=== PATIENT | female | born 1990 | race Caucasian/White ===

== ENCOUNTER 2017-04-03 23:15 | Inpatient (IN) | payer OTHER ==
[~2017-04-03] VITALS: Ht 160 cm; Wt 66.0 kg
[2017-04-03] MEDS ORDERED: SOD CHLORIDE 0.9% 1,000 ML IV STA (23:24)
[2017-04-03] MEDS ORDERED: ONDANSETRON 4 MG INJ IV STA (23:24)
[2017-04-03] MEDS ORDERED: LEVETIRACETAM 500 MG (PMX) 100 ML IVPB ONE (23:30)
[2017-04-03 23:39] LABS: BASOPHIL # 0.1 10^3/ul (0.0-0.1); BASOPHILS % 0.4 % (0.0-2.0); EOSINOPHILS % 0.1 % (0.0-7.0); HEMATOCRIT 41.1 % (37.0-47.0); HEMOGLOBIN 13.7 g/dl (12.0-16.0); LYMPHOCYTES # 2.2 10^3/ul (0.8-2.9); LYMPHOCYTES % 11.6 % (15.0-51.0); MEAN CORPUSCULAR HEMOGLOBIN 30.7 pg (29.0-33.0); MEAN CORPUSCULAR HGB CONC 33.3 g/dl (32.0-37.0); MEAN CORPUSCULAR VOLUME 92.2 fl (82.0-101.0); MONOCYTE # 1.5 10^3/ul (0.3-0.9); MONOCYTES % 7.6 % (0.0-11.0); NEUTROPHIL # 15.3 10^3/ul (1.6-7.5); NEUTROPHILS % 79.7 % (39.0-77.0); PLATELET COUNT 382 10^3/UL (140-415); RED BLOOD COUNT 4.46 10^6/ul (4.20-5.40); RED CELL DISTRIBUTION WIDTH 12.8 % (11.5-14.5); WHITE BLOOD COUNT 19.2 10^3/ul (4.8-10.8)
[2017-04-04] VITALS (7 sets, daily range): BP systolic 98–115; BP diastolic 60–71; PULSE 75–79; RESP 18–19; TEMP 99; Ht 160 cm; Wt 66.0 kg
[2017-04-04] MEDS ORDERED: LORAZEPAM 2 MG INJ IV ONE
[2017-04-04 00:25] LABS: ALANINE AMINOTRANSFERASE 15 IU/L (13-69); ALBUMIN 5.3 g/dl (3.3-4.9); ALBUMIN/GLOBULIN RATIO 1.76; ALKALINE PHOSPHATASE 62 IU/L (42-121); ANION GAP 29 (8-16); ASPARTATE AMINO TRANSFERASE 35 IU/L (15-46); BILIRUBIN,INDIRECT 0.4 mg/dl (0-1.1); BILIRUBIN,TOTAL 0.4 mg/dl (0.2-1.3); BLOOD UREA NITROGEN 8 mg/dl (7-20); CARBON DIOXIDE 16 mmol/L (21-31); CHLORIDE 102 mmol/L (97-110); CREATININE 0.78 mg/dl (0.44-1.00); GLUCOSE 139 mg/dl (70-220); POTASSIUM 4.2 mmol/L (3.5-5.1); SODIUM 143 mmol/L (135-144); TOTAL PROTEIN 8.3 g/dl (6.1-8.1)
--- NOTE | 2017-04-04 00:30 | RADRPT ---
PROCEDURE: XR Chest. CLINICAL INDICATION: Seizure TECHNIQUE: Single AP portable chest. COMPARISON: None. FINDINGS: The cardiomediastinal silhouette is within normal limits of size. The lungs are clear without pleur al effusion or focal consolidation. No pneumothorax. The osseous structures and soft tissues are unr emarkable. IMPRESSION: 1. No evidence for active cardiopulmonary disease. RPTAT:AAJJ Romeo Emerson Physician Date Time Electronically viewed and signed by Romeo Emerson Physician on 04/04/2017 00:30 JERRI/
[2017-04-04 00:38] LABS: TROPONIN-I < 0.012 ng/ml (0.00-0.12)
[2017-04-04] MEDS ORDERED: BISACODYL (EC) 5 MG TAB PO PRN (01:30)
[2017-04-04] MEDS ORDERED: DOCUSATE SODIUM 100 MG CAP PO PRN (01:30)
[2017-04-04] MEDS ORDERED: ACETAMINOPHEN 325 MG TAB PO PRN (01:30)
[2017-04-04] MEDS ORDERED: NACL 0.9% 3 ML SYG IV SCH (01:30)
[2017-04-04 01:48] LABS: ETHANOL < 10.0 mg/dl
[2017-04-04 01:51] LABS: VALPROATE < 10 ug/ml (50-100)
[2017-04-04] MEDS ORDERED: SOD CHLORIDE 0.9% 1,000 ML IV ONE (02:00)
--- NOTE | 2017-04-04 02:16 | ERA ---
ER Documentation Chief Complaint Date/Time DATE: 04/04/17 TIME: 02:09 Chief Complaint HPI 27-year-old woman with a history of chronic seizure disorder medication noncompliance presents from home after having her third seizure. Friends called 911 because she had 3 tonic-clonic seizures today followed by postictal episodes. 911 picked her up and she had another tonic-clonic seizure includes making it a total of 4 today. She lost bladder control after the last seizure activity. She has had no fevers, no vomiting or diarrhea. ROS All systems reviewed and are negative except as per history of present illness. Allergies Allergies: Coded Allergies: No Known Allergy (Unverified , 04/04/17) PMhx/Soc Seizure disorder FmHx Family History: No diabetes Physical Exam Vitals Vital Signs Date Time Temp Pulse Resp B/P Pulse Ox O2 Delivery O2 Flow Rate FiO2 04/03/17 23:44 98.5 92 20 120/75 98 Physical Exam GENERAL: Well-developed, well-nourished, encephalopathic, dehydrated, afebrile HEENT: Dry mucous membranes, pink conjunctiva, no cervical spine tenderness or step-off deformities, no goiter, no jaundice or icterus, extraocular movements intact without pain. No submandibular induration, and no pharyngeal erythema NEURO: Postictal, confused, eyes open, pupils equal round reactive to light, no focal deficits or facial asymmetry, patient moving all extremities without difficulty CARDIAC: Tachycardic and regular no murmurs rubs or gallops LUNGS: Clear bilaterally no wheezing crackles or stridor ABDOMEN: Soft nontender, no guarding, no rigidity, no rebound, no psoas sign no obturator sign. Normoactive bowel sounds SKIN: Warm and dry to touch, soft tissue contusion/hematoma to the mid calf, no lacerations, no ecchymosis, no target lesions, and without ulcers EXTREMITIES: No clubbing cyanosis or edema, calves are bilaterally symmetrical, no Homans sign, no popliteal cord sign. Distal pulses equal and bilateral PSYCH: Normal affect without agitation or irritability Result Diagram: 04/03/17232604/03/172326 Results 24 hrs Laboratory Tests Test 04/03/17 23:27 White Blood Count 19.210^3/ul Red Blood Count 4.4610^6/ul Hemoglobin 13.7g/dl Hematocrit 41.1% Mean Corpuscular Volume 92.2fl Mean Corpuscular Hemoglobin 30.7pg Mean Corpuscular Hemoglobin Concent 33.3g/dl Red Cell Distribution Width 12.8% Platelet Count 46566^3/UL Mean Platelet Volume 11.0fl Neutrophils % 79.7% Lymphocytes % 11.6% Monocytes % 7.6% Eosinophils % 0.1% Basophils % 0.4% Nucleated Red Blood Cells % 0.0/100WBC Neutrophils # 15.310^3/ul Lymphocytes # 2.210^3/ul Monocytes # 1.510^3/ul Eosinophils # 0.010^3/ul Basophils # 0.110^3/ul Nucleated Red Blood Cells # 0.010^3/ul Sodium Level 143mmol/L Potassium Level 4.2mmol/L Chloride Level 102mmol/L Carbon Dioxide Level 16mmol/L Anion Gap 29 Blood Urea Nitrogen 8mg/dl Creatinine 0.78mg/dl Glucose Level 139mg/dl Calcium Level 10.0mg/dl Total Bilirubin 0.4mg/dl Direct Bilirubin 0.00mg/dl Indirect Bilirubin 0.4mg/dl Aspartate Amino Transf (AST/SGOT) 35IU/L Alanine Aminotransferase (ALT/SGPT) 15IU/L Alkaline Phosphatase 62IU/L Troponin I < 0.012ng/ml Total Protein 8.3g/dl Albumin 5.3g/dl Globulin 3.00g/dl Albumin/Globulin Ratio 1.76 Lipase 56U/L Beta HCG, Quantitative < 2.4mIU/ml Valproic Acid (Depakene) Level < 10ug/ml Ethyl Alcohol Level < 10.0mg/dl Current Medications Medications (Trade) Dose Ordered Sig/Mert Route PRN Reason Start Time Stop Time Status Last Admin Dose Admin Sodium Chloride (NS) 1,000 ml @ 1,000 mls/hr Q1H STAT IV 04/03/17 23:24 04/04/17 00:23 DC 04/03/17 23:52 Ondansetron HCl 4 mg 4 mg ONCE STAT IV 04/03/17 23:24 04/03/17 23:26 DC 04/03/17 23:52 Levetiracetam (Keppra 500 Mg/ 100ml (Pmx)) 100 ml @ 400 mls/hr ONCE ONCE IVPB 7/27/17 23:30 04/03/17 23:44 DC 04/03/17 23:30 Lorazepam 1 mg 1 mg ONCE ONCE IV 04/04/17 00:00 04/04/17 00:01 DC 04/04/17 00:00 Levetiracetam 100 ml @ 400 mls/hr Q12 IVPB 04/04/17 09:00 UNV Sodium Chloride (NS) 1,000 ml @ 80 mls/hr [id number] IV 04/04/17 01:06 UNV IV Flush (NS 3 ml) 3 ml PER PROTOCOL IV 04/04/17 01:30 UNV Lorazepam (Ativan) 2 mg Q4 PRN IV SEIZURES 04/04/17 01:30 UNV Acetaminophen (Tylenol Tab) 650 mg Q6H PRN PO PAIN LEVEL 1-3 OR FEVER 04/04/17 01:30 UNV Docusate Sodium (Colace) 100 mg Q12H PRN PO CONSTIPATION 04/04/17 01:30 UNV Bisacodyl (Dulcolax) 5 mg DAILY PRN PO CONSTIPATION 04/04/17 01:30 UNV Pantoprazole 40 mg 40 mg DAILY@06 IV 04/04/17 06:00 UNV Sodium Chloride (NS) 1,000 ml @ 1,000 mls/hr Q1H ONCE IV 04/04/17 02:00 04/04/17 02:59 Procedures/MDM IV line was established patient was placed on director cardiac rhythm strip revealed a sinus tachycardia at 100 bpm with upright P and T waves. Patient was afebrile. For dehydration I administered 2 L normal saline intravenously, and for postictal agitation patient received lorazepam 1 mg IV 1. I also administered Keppra 500 mg IV. Chest X-ray 1V Interpreted by me: Soft Tissue: No acute abnormalities Bones: No acute abnormalities Mediastinum/Cardiac Silhouette/Lungs: No acute abnormalities EKG performed, read by me: 96 bpm, normal sinus rhythm, normal axis, no acute ST segment changes, narrow QRS complex, with good R-wave progression in precordial leads. CBC revealed a leukocytosis at 19, electrolytes unremarkable, liver function tests normal, test negative, troponin negative, ethanol level negative , urine analysis is pending I will follow-up. If positive I will will treat with IV antibiotics. Critical Care: Time: 37 minutes, this was time separate from other billable procedures. Treatments/Evaluations: Close monitoring and treatment of unstable vital signs, cardiorespiratory, and neurologic status, while maintaining tight balance of fluid, respiratory, and cardiac interventions. Patient will be admitted to telemetry setting for continued medical management and possible neurology consultation. Departure Diagnosis: Primary Impression: Status epilepticus Additional Impressions: Acute encephalopathy Postictal state Dehydration Leukocytosis Qualified Code: D72.820 - Lymphocytosis Condition: Fair SAMIRA RUSS MD Apr 04, 2017 02:16
[2017-04-04 03:23] LABS: ADD UMIC YES; UR ASCORBIC ACID NEGATIVE (NEGATIVE); UR BACTERIA FEW /HPF (NONE SEEN); UR BILIRUBIN (Dip) NEGATIVE (NEGATIVE); UR BLOOD (Dip) 2+ mg/dL (NEGATIVE); UR CLARITY SLIGHTLY CLOUDY (CLEAR); UR COLOR YELLOW (YELLOW); UR GLUCOSE (Dip) NEGATIVE (NEGATIVE); UR KETONES (Dip) 1+ mg/dL (NEGATIVE); UR LEUKOCYTE ESTERASE (Dip) NEGATIVE Leu/ul (NEGATIVE); UR NITRITE (Dip) NEGATIVE (NEGATIVE); UR RBC 26 /HPF (0-5); UR SPECIFIC GRAVITY (Dip) 1.016 (1.003-1.030); UR TOTAL PROTEIN (Dip) 1+ mg/dl (NEGATIVE); UR UROBILINOGEN (Dip) NEGATIVE (NEGATIVE)
[2017-04-04 03:25] LABS: BARBITURATES Negative (NEGATIVE); BENZODIAZEPINES Negative (NEGATIVE); CANNABINOIDS Negative (NEGATIVE); COCAINE Negative (NEGATIVE); OPIATES Negative (NEGATIVE)
--- NOTE | 2017-04-04 04:56 | RADRPT ---
PROCEDURE: CT brain without contrast. CLINICAL INDICATION: Seizure. TECHNIQUE: CT scan of the brain was performed on a multi-detector high-resolution CT scanner. Co ntiguous axial images were obtained from the skull base to the vertex without intravenous contrast. Coronal and sagittal reformatted images were also obtained. Images were reviewed on the PACS works tation. One or more of the following dose reduction techniques were used: - Automated exposure control. - Adjustment of the mA and/or kV according to patient size. - Use of iterative reconstruction technique. Exam CTD/vol = 45.01 mGy. Total exam DLP = 1440.45 mGy-cm. COMPARISON: None. FINDINGS: The ventricles and cortical sulci are within normal limits for patient's age. There are no areas of abnormal attenuation within the brain parenchyma. There is no mass effect or midline shift. There is no intracranial hemorrhage or abnormal extra-axial collection. The calvarium is intact. There is no evidence of fracture. There is minimal mucoperiosteal disease w ithin the right maxillary sinus. Bilateral mastoid air cells are clear. IMPRESSION: No acute intracranial abnormality identified. .Ethan Dickens MD, MD Date Time Electronically viewed and signed by .Ethan Dickens MD, MD on 04/04/2017 04:55 .T/
[2017-04-04 05:50] LABS: ABNORMAL IP MESSAGE 1; BASOPHIL # 0.1 10^3/ul (0.0-0.1); BASOPHILS % 0.4 % (0.0-2.0); EOSINOPHILS # 0.1 10^3/ul (0.0-0.5); EOSINOPHILS % 0.3 % (0.0-7.0); HEMATOCRIT 35.5 % (37.0-47.0); HEMOGLOBIN 11.6 g/dl (12.0-16.0); LYMPHOCYTES % 13.3 % (15.0-51.0); MEAN CORPUSCULAR HEMOGLOBIN 30.2 pg (29.0-33.0); MEAN CORPUSCULAR HGB CONC 32.7 g/dl (32.0-37.0); MEAN CORPUSCULAR VOLUME 92.4 fl (82.0-101.0); MEAN PLATELET VOLUME 10.9 fl (7.4-10.4); MONOCYTE # 1.5 10^3/ul (0.3-0.9); MONOCYTES % 10.2 % (0.0-11.0); NEUTROPHIL # 11.3 10^3/ul (1.6-7.5); NEUTROPHILS % 75.3 % (39.0-77.0); PLATELET COUNT 316 10^3/UL (140-415); RED BLOOD COUNT 3.84 10^6/ul (4.20-5.40); WHITE BLOOD COUNT 14.9 10^3/ul (4.8-10.8)
[2017-04-04 06:03] LABS: POSITIVE DIFF @See below
[2017-04-04] MEDS: PANTOPRAZOLE 40 MG INJ IV SCH (06:09)
[2017-04-04 06:18] LABS: ALBUMIN 4.2 g/dl (3.3-4.9); ALBUMIN/GLOBULIN RATIO 1.75; BILIRUBIN,INDIRECT 0.5 mg/dl (0-1.1); BILIRUBIN,TOTAL 0.5 mg/dl (0.2-1.3); CALCIUM 8.8 mg/dl (8.4-10.2); CREATININE 0.64 mg/dl (0.44-1.00); PHOSPHORUS 3.8 mg/dl (2.5-4.9); POTASSIUM 3.9 mmol/L (3.5-5.1); TOTAL PROTEIN 6.6 g/dl (6.1-8.1)
--- NOTE | 2017-04-04 07:15 | HP ---
Date/Time of Note Date/Time of Note DATE: 04/04/17 TIME: 06:56 Assessment/Plan VTE Prophylaxis VTE Prophylaxis Intervention: SCD's Assessment/Plan Chief Complaint/Hosp Course This is a 27 year female was admitted to the telemetry floor for: #1 encephalopathy: Neurologic versus metabolic versus infectious. Patient did present with leukocytosis however this likely could be elevated secondary to her seizure activity. There are no overt signs of infections at this time as there are no fevers, chest x-ray is normal urinalysis is normal. Urine drug screen is normal. Will check urine culture and blood culture for completeness sake. Because of her encephalopathy system likely is secondary to her seizure and this may be secondary to noncompliance with her medications per CT scan of the head did not show any acute intracranial abnormalities. Neurochecks every 2 hours, fall precautions. NPO until speech evaluation. #2 epilepsy: Patient has a history of seizure disorder and apparently is noncompliant as per her friends. Her medication history is unable to be obtained at this time. She was loaded with 500 mg of IV Keppra and will continue her on this every 12 hours. As needed lorazepam for any seizure activity. Will consult neurology for further treatment strategy. #3 leukocytosis: No signs of any infectious process at this time. This is likely reactive in nature secondary to her seizures. However we will order blood cultures and urine cultures as part of a sepsis workup. #4 DVT and GI prophylaxis: SCDs, Protonix Further treatment strategy will be implemented as per the clinical course Problems: HPI/ROS Admit Date/Time Admit Date/Time Hx of Present Illness Chief complaint: Seizures, altered mental status This is a 27-year-old woman with a history of chronic seizure disorder medication noncompliance presents from home after having her third seizure. History obtained from the EMS and ED physician documentation. Friends called 911 because she had 3 tonic-clonic seizures today followed by postictal episodes. 911 picked her up and she had another tonic-clonic seizure includes making it a total of 4 today. She lost bladder control after the last seizure activity. She has had no fevers, no vomiting or diarrhea. Upon my examination patient is arousable and does state that she know she is in the hospital however she goes back to sleep fairly quickly. Allergies: Daily Medications: See GONZALO MOMIN Subjective hx not possible: pt critical (Postictal, arousable but not cooperating verbally) PMH/Family/Social Past Medical History Epilepsy, unable to assess further history secondary to patient's medical state Past Surgical History unable to assess further history secondary to patient's medical state Family History Significant Family History: other (unable to assess further history secondary to patient's medical state) Social History unable to assess further history secondary to patient's medical state Exam/Review of Systems Vital Signs Vitals Vital Signs Date Time Temp Pulse Resp B/P Pulse Ox O2 Delivery O2 Flow Rate FiO2 04/04/17 06:50 67 18 93/71 97 Room Air 04/04/17 05:48 98.7 Exam Exam General: Patient is a well-developed female lying in bed, she is arousable, but not cooperating verbally likely secondary to postictal state/encephalopathy. HEENT: Atraumatic, normocephalic. The pupils are equal, round and reactive. Extraocular motor are intact Neck: Supple with full range of motion. No rigidity or meningismus Chest: Nontender Lungs: Clear to auscultation bilaterally no crackles rales or wheezing Heart: Normal S1-S2, Regular rhythm and rate. No murmur, S3, or S4 Abdomen: Soft , nontender, nondistended , bowel sounds are present. No guarding no rebound tenderness , No masses or organomegaly. No costovertebral temporal angle mass Extremities: Normal to inspection, no edema no cyanosis Neurologic: Somnolent but arousable not cooperating verbally likely secondary to postictal state/encephalopathy she does state that she know she is in the hospital. Additional Comments PROCEDURE: CT brain without contrast. CLINICAL INDICATION: Seizure. TECHNIQUE: CT scan of the brain was performed on a multi-detector high- resolution CT scanner. Contiguous axial images were obtained from the skull base to the vertex without intravenous contrast. Coronal and sagittal reformatted images were also obtained. Images were reviewed on the PACS workstation. One or more of the following dose reduction techniques were used: - Automated exposure control. - Adjustment of the mA and/or kV according to patient size. - Use of iterative reconstruction technique. Exam CTD/vol = 45.01 mGy. Total exam DLP = 1440.45 mGy-cm. COMPARISON: None. FINDINGS: The ventricles and cortical sulci are within normal limits for patient's age. There are no areas of abnormal attenuation within the brain parenchyma. There is no mass effect or midline shift. There is no intracranial hemorrhage or abnormal extra-axial collection. The calvarium is intact. There is no evidence of fracture. There is minimal mucoperiosteal disease within the right maxillary sinus. Bilateral mastoid air cells are clear. IMPRESSION: No acute intracranial abnormality identified. .Ethan Dickens MD, Date Time Electronically viewed and signed by .Ethan Dickens MD, on 04/04/2017 04:55 .T/ PROCEDURE: XR Chest. CLINICAL INDICATION: Seizure TECHNIQUE: Single AP portable chest. COMPARISON: None. FINDINGS: The cardiomediastinal silhouette is within normal limits of size. The lungs are clear without pleural effusion or focal consolidation. No pneumothorax. The osseous structures and soft tissues are unremarkable. IMPRESSION: 1. No evidence for active cardiopulmonary disease. RPTAT:AAJJ Physician Leydi Date Time Electronically viewed and signed by Physician Leydi on 04/04/2017 00:30 JERRI/ EKG performed, read by me: 96 bpm, normal sinus rhythm, normal axis, no acute ST segment changes, narrow QRS complex, with good R-wave progression in precordial leads. As per ED physician augmentation Labs Result Diagram: 04/04/1752804/04/17528 Medications Medications Current Medications Levetiracetam 100 ml @ 400 mls/hr Q12 IVPB ; Start 04/04/17 at 09:00 Sodium Chloride (NS) 1,000 ml @ 80 mls/hr [id number] IV ; Start 04/04/17 at 01:06 Lorazepam (Ativan) 2 mg Q4H PRN IV SEIZURES; Start 04/04/17 at 01:30 Acetaminophen (Tylenol Tab) 650 mg Q6H PRN PO PAIN LEVEL 1-3 OR FEVER; Start at 01:30 Docusate Sodium (Colace) 100 mg Q12H PRN PO CONSTIPATION; Start 04/04/17 at 01: 30 Bisacodyl (Dulcolax) 5 mg DAILY PRN PO CONSTIPATION; Start 04/04/17 at 01:30 Pantoprazole (Protonix Iv) 40 mg DAILY@06 IV Last administered on 04/04/17t 06: 09; Admin Dose 40 MG; Start 04/04/17 at 06:00 CHITO FUNK Apr 04, 2017 07:07
[2017-04-04] MEDS: SOD CHLORIDE 0.9% 1,000 ML IV SCH ×3 (09:37→23:09)
[2017-04-04] MEDS: LEVETIRACETAM 500 MG (PMX) 100 ML IVPB SCH ×2 (09:38→21:12)
[2017-04-05] VITALS (13 sets, daily range): BP systolic 105–121; BP diastolic 61–83; PULSE 53–150; RESP 17–19
[2017-04-05] MEDS: LORAZEPAM 2 MG INJ IV PRN (04:44)
[2017-04-05] MEDS: LEVETIRACETAM 1000 MG (PMX) 100 ML IVPB SCH ×2 (05:20→20:09)
[2017-04-05] MEDS: PANTOPRAZOLE 40 MG INJ IV SCH (05:32)
[2017-04-05 08:05] LABS: BASOPHIL # 0.1 10^3/ul (0.0-0.1); BASOPHILS % 0.4 % (0.0-2.0); EOSINOPHILS # 0.2 10^3/ul (0.0-0.5); EOSINOPHILS % 1.7 % (0.0-7.0); HEMATOCRIT 36.6 % (37.0-47.0); HEMOGLOBIN 12.3 g/dl (12.0-16.0); LYMPHOCYTES # 1.6 10^3/ul (0.8-2.9); LYMPHOCYTES % 12.9 % (15.0-51.0); MEAN CORPUSCULAR HEMOGLOBIN 30.7 pg (29.0-33.0); MEAN CORPUSCULAR HGB CONC 33.6 g/dl (32.0-37.0); MEAN CORPUSCULAR VOLUME 91.3 fl (82.0-101.0); MEAN PLATELET VOLUME 11.3 fl (7.4-10.4); MONOCYTE # 0.9 10^3/ul (0.3-0.9); MONOCYTES % 7.4 % (0.0-11.0); NEUTROPHIL # 9.7 10^3/ul (1.6-7.5); PLATELET COUNT 279 10^3/UL (140-415); RED BLOOD COUNT 4.01 10^6/ul (4.20-5.40); RED CELL DISTRIBUTION WIDTH 12.5 % (11.5-14.5); WHITE BLOOD COUNT 12.6 10^3/ul (4.8-10.8)
[2017-04-05 08:38] LABS: ALBUMIN 4.4 g/dl (3.3-4.9); ALBUMIN/GLOBULIN RATIO 1.69; BILIRUBIN,INDIRECT 0.4 mg/dl (0-1.1); BILIRUBIN,TOTAL 0.4 mg/dl (0.2-1.3); CALCIUM 9.3 mg/dl (8.4-10.2); CREATININE 0.58 mg/dl (0.44-1.00); MAGNESIUM 1.7 mg/dl (1.7-2.5); PHOSPHORUS 2.4 mg/dl (2.5-4.9); POTASSIUM 3.8 mmol/L (3.5-5.1)
[2017-04-05] MEDS: SOD CHLORIDE 0.9% 1,000 ML IV SCH (15:21)
--- NOTE | 2017-04-05 15:24 | CONS ---
Date/Time of Note Date/Time of Note DATE: 04/05/17 TIME: 15:13 Assessment/Plan Assessment/Plan Chief Complaint/Hosp Course Neuroexam: AOx3, fluent speech, slurred secondary to tongue bites, CN II-XII int , perll 4 to 2 mm, Motor, sensory, coord int, DTR 2+, no babinski A/P: Seizure d/o, s/p breakthrough seizures. Started on keppra,. was increased 1000 bid this am, was on Lamictal unclear exact dose, I left message to contact number in the chart, will restart when dose is known. Problems: Consultation Date/Type/Reason Admit Date/Time Type of Consultation: neurology Reason for Consultation seizures Hx of Present Illness 27 y/o with hx of generalized seizures since age 16, usually once every 6 mo, no aura, on lamotrigine, unknown dose, I called contact number in the chart, left message, pt claims full compliance. PMD note states noncompliance per pt's friends. Pt was admitted following several seizures at home, started on Keppra here 500 bid, had a seizure this am, dose was increased 1000 bid. Used to see neurologist in [facility], several years ago. Does not drive Past Medical History Medical History: no pertinent history Family History Significant Family History: no pertinent family hx Social History Alcohol Use: none Smoking Status: Never smoker Drug Use: none Exam/Review of Systems Vital Signs Vitals Vital Signs Date Time Temp Pulse Resp B/P Pulse Ox O2 Delivery O2 Flow Rate FiO2 04/05/17 12:02 84 04/05/17 11:58 98.0 18 105/61 98 04/04/17 11:07 Room Air Intake and Output 04/04/17 04/04/17 04/05/17 15:00 23:00 07:00 Intake Total 820 ml 1460 ml Output Total 1 ml Balance 819 ml 1460 ml Exam Constitutional: alert, oriented, well developed Head: atraumatic, normocephalic Neck: supple Respiratory: clear to auscultation Cardiovascular: regular rate and rhythm Gastrointestinal: non-tender, soft Musculoskeletal: nl extremities to inspection Results Result Diagram: 04/05/17 0726 04/05/17 0726 Results 24 hrs Laboratory Tests Test 04/05/17 07:26 White Blood Count 12.6 H Red Blood Count 4.01 L Hemoglobin 12.3 Hematocrit 36.6 L Mean Corpuscular Volume 91.3 Mean Corpuscular Hemoglobin 30.7 Mean Corpuscular Hemoglobin Concent 33.6 Red Cell Distribution Width 12.5 Platelet Count 279 Mean Platelet Volume 11.3 H Neutrophils % 77.0 Lymphocytes % 12.9 L Monocytes % 7.4 Eosinophils % 1.7 Basophils % 0.4 Nucleated Red Blood Cells % 0.0 Neutrophils # 9.7 H Lymphocytes # 1.6 Monocytes # 0.9 Eosinophils # 0.2 Basophils # 0.1 Nucleated Red Blood Cells # 0.0 Sodium Level 143 Potassium Level 3.8 Chloride Level 105 Carbon Dioxide Level 23 Anion Gap 19 H Blood Urea Nitrogen 4 L Creatinine 0.58 Glucose Level 100 Calcium Level 9.3 Phosphorus Level 2.4 #L Magnesium Level 1.7 Total Bilirubin 0.4 Direct Bilirubin 0.00 Indirect Bilirubin 0.4 Aspartate Amino Transf (AST/SGOT) 30 Alanine Aminotransferase (ALT/SGPT) 25 Alkaline Phosphatase 56 Total Protein 7.0 Albumin 4.4 Globulin 2.60 Albumin/Globulin Ratio 1.69 Medications Medications Current Medications Sodium Chloride (NS) 1,000 ml @ 80 mls/hr [id number] IV Last administered on 04/04 23:09; Admin Dose 80 MLS/HR; Start 04/04/17 at 01:06 Lorazepam (Ativan) 2 mg Q4H PRN IV SEIZURES Last administered on 04/05/17 04: 44; Admin Dose 2 MG; Start 04/04/17 at 01:30 Acetaminophen (Tylenol Tab) 650 mg Q6H PRN PO PAIN LEVEL 1-3 OR FEVER; Start at 01:30 Docusate Sodium (Colace) 100 mg Q12H PRN PO CONSTIPATION; Start 04/04/17 at 01: 30 Bisacodyl (Dulcolax) 5 mg DAILY PRN PO CONSTIPATION; Start 04/04/17 at 01:30 Pantoprazole 40 mg 40 mg DAILY@06 IV Last administered on 04/05/17 05:32; Admin Dose 40 MG; Start 04/04/17 at 06:00 Levetiracetam (Keppra 1,000mg/ 100ml (Pmx)) 100 ml @ 400 mls/hr Q12 IVPB Last administered on 04/05/17 05:20; Admin Dose 400 MLS/HR; Start 04/05/17 at 05:01 CARLOS LUCERO MD Apr 05, 2017 15:24
--- NOTE | 2017-04-05 23:18 | PN ---
Date/Time of Note Date/Time of Note DATE: 04/05/17 TIME: 23:11 Assessment/Plan VTE Prophylaxis VTE Prophylaxis Intervention: SCD's Lines/Catheters IV [facility]ter [facility]from [facility] Peripheral IV Urinary Cath still in place: No Assessment/Plan Assessment/Plan 1. Seizure d/o: pt had another episode this morning. She appeared lethargic earlier in the afternoon, but attempted to open eyes and follow commands - she has been seen by from Neurology and meds were adjusted. appreciate input - seizure precaution 2. Acute Encephalopathy: 2/2 post-ictal state. Mentation improved compared to admission.see above for plan 3. leukocytosis: likely reactive(stress-induced): down trending. UA neg for UTI Exam/Review of Systems Vital Signs Vitals Vital Signs Date Time Temp Pulse Resp B/P Pulse Ox O2 Delivery O2 Flow Rate FiO2 04/05/17 20:08 59 04/05/17 19:47 98.3 19 113/61 99 04/04/17 11:07 Room Air Intake and Output 04/04/17 04/04/17 04/05/17 15:00 23:00 07:00 Intake Total 820 ml 1460 ml Output Total 1 ml Balance 819 ml 1460 ml Exam Constitutional: other (lethargic) Head: atraumatic, normocephalic Eyes: PERRL Respiratory: clear to auscultation, normal air movement Cardiovascular: nl pulses, regular rate and rhythm Gastrointestinal: soft Extremities: normal pulses Results Result Diagram: 04/05/17 0726 04/05/17 0726 Results 24 hrs Laboratory Tests Test 04/05/17 07:26 White Blood Count 12.6 H Red Blood Count 4.01 L Hemoglobin 12.3 Hematocrit 36.6 L Mean Corpuscular Volume 91.3 Mean Corpuscular Hemoglobin 30.7 Mean Corpuscular Hemoglobin Concent 33.6 Red Cell Distribution Width 12.5 Platelet Count 279 Mean Platelet Volume 11.3 H Neutrophils % 77.0 Lymphocytes % 12.9 L Monocytes % 7.4 Eosinophils % 1.7 Basophils % 0.4 Nucleated Red Blood Cells % 0.0 Neutrophils # 9.7 H Lymphocytes # 1.6 Monocytes # 0.9 Eosinophils # 0.2 Basophils # 0.1 Nucleated Red Blood Cells # 0.0 Sodium Level 143 Potassium Level 3.8 Chloride Level 105 Carbon Dioxide Level 23 Anion Gap 19 H Blood Urea Nitrogen 4 L Creatinine 0.58 Glucose Level 100 Calcium Level 9.3 Phosphorus Level 2.4 #L Magnesium Level 1.7 Total Bilirubin 0.4 Direct Bilirubin 0.00 Indirect Bilirubin 0.4 Aspartate Amino Transf (AST/SGOT) 30 Alanine Aminotransferase (ALT/SGPT) 25 Alkaline Phosphatase 56 Total Protein 7.0 Albumin 4.4 Globulin 2.60 Albumin/Globulin Ratio 1.69 Medications Medications Current Medications Sodium Chloride (NS) 1,000 ml @ 80 mls/hr [id number] IV Last administered on 04/05 15:21; Admin Dose 80 MLS/HR; Start 04/04/17 at 01:06 Lorazepam (Ativan) 2 mg Q4H PRN IV SEIZURES Last administered on 04/05/17 04: 44; Admin Dose 2 MG; Start 04/04/17 at 01:30 Acetaminophen (Tylenol Tab) 650 mg Q6H PRN PO PAIN LEVEL 1-3 OR FEVER; Start at 01:30 Docusate Sodium (Colace) 100 mg Q12H PRN PO CONSTIPATION; Start 04/04/17 at 01: 30 Bisacodyl (Dulcolax) 5 mg DAILY PRN PO CONSTIPATION; Start 04/04/17 at 01:30 Pantoprazole 40 mg 40 mg DAILY@06 IV Last administered on 04/05/17 05:32; Admin Dose 40 MG; Start 04/04/17 at 06:00 Levetiracetam (Keppra 1,000mg/ 100ml (Pmx)) 100 ml @ 400 mls/hr Q12 IVPB Last administered on 04/05/17 20:09; Admin Dose 400 MLS/HR; Start 04/05/17 at 05:01 SIMI BRO MD Apr 05, 2017 23:18
[2017-04-06] VITALS (38 sets, daily range): BP systolic 86–130; BP diastolic 52–98; PULSE 65–176; RESP 13–23
[2017-04-06] MEDS: SOD CHLORIDE 0.9% 1,000 ML IV SCH ×3 (03:06→18:49)
[2017-04-06] MEDS: LORAZEPAM 2 MG INJ IV PRN (03:49)
[2017-04-06] MEDS ORDERED: LORAZEPAM 2 MG INJ IV PRN (04:32)
[2017-04-06] MEDS ORDERED: LORAZEPAM 2 MG INJ IV ONE (05:00)
[2017-04-06] MEDS: LEVETIRACETAM 1000 MG (PMX) 100 ML IVPB SCH (05:43)
[2017-04-06 07:37] LABS: BASOPHIL # 0.1 10^3/ul (0.0-0.1); BASOPHILS % 0.4 % (0.0-2.0); EOSINOPHILS # 0.2 10^3/ul (0.0-0.5); EOSINOPHILS % 1.2 % (0.0-7.0); HEMATOCRIT 37.3 % (37.0-47.0); HEMOGLOBIN 12.5 g/dl (12.0-16.0); LYMPHOCYTES # 1.5 10^3/ul (0.8-2.9); LYMPHOCYTES % 11.2 % (15.0-51.0); MEAN CORPUSCULAR HEMOGLOBIN 30.3 pg (29.0-33.0); MEAN CORPUSCULAR HGB CONC 33.5 g/dl (32.0-37.0); MEAN CORPUSCULAR VOLUME 90.5 fl (82.0-101.0); MEAN PLATELET VOLUME 11.3 fl (7.4-10.4); MONOCYTE # 1.1 10^3/ul (0.3-0.9); NEUTROPHIL # 10.8 10^3/ul (1.6-7.5); NEUTROPHILS % 78.8 % (39.0-77.0); PLATELET COUNT 323 10^3/UL (140-415); RED BLOOD COUNT 4.12 10^6/ul (4.20-5.40); RED CELL DISTRIBUTION WIDTH 12.4 % (11.5-14.5); WHITE BLOOD COUNT 13.8 10^3/ul (4.8-10.8)
[2017-04-06 07:59] LABS: ALBUMIN 4.6 g/dl (3.3-4.9); ALBUMIN/GLOBULIN RATIO 1.7; BILIRUBIN,INDIRECT 0.5 mg/dl (0-1.1); BILIRUBIN,TOTAL 0.5 mg/dl (0.2-1.3); CALCIUM 9.4 mg/dl (8.4-10.2); CREATININE 0.62 mg/dl (0.44-1.00); MAGNESIUM 1.6 mg/dl (1.7-2.5); PHOSPHORUS 2.5 mg/dl (2.5-4.9); POTASSIUM 3.6 mmol/L (3.5-5.1); TOTAL PROTEIN 7.3 g/dl (6.1-8.1)
[2017-04-06] MEDS ORDERED: PHENYTOIN 1,000 MG in SOD CHLORIDE 0.9% 100 ML IV ONE (08:00)
[2017-04-06] MEDS: PANTOPRAZOLE 40 MG INJ IV SCH (08:33)
[2017-04-06] MEDS: LEVETIRACETAM 1500 MG (PMX) 100 ML IVPB SCH ×2 (10:55→21:28)
--- NOTE | 2017-04-06 11:03 | CONS ---
Date/Time of Note Date/Time of Note DATE: 04/06/17 TIME: 10:59 Consult Date/Type/Reason Admit Date/Time Apr 04, 2017 at 00:52 Initial Consult Date Type of Consultation: neurology Subjective multiple seizures this AM, moved to ICU, several ativans, loaded with dilantin, no more seizures since 6am, home dose of lamictal 250 bid will restart as well Objective Vital Signs Date Time Temp Pulse Resp B/P Pulse Ox O2 Delivery O2 Flow Rate FiO2 04/06/17 10:30 74 13 126/72 100 04/06/17 10:00 Room Air 04/06/17 08:00 98.8 Intake and Output 04/05/17 04/05/17 04/06/17 15:00 23:00 07:00 Intake Total 500 ml 100 ml Output Total 2000 ml Balance -1500 ml 100 ml Results/Medications Result Diagram: 04/06/17 0625 04/06/17 0625 Results 24 hrs Laboratory Tests Test 04/06/17 06:25 White Blood Count 13.8 H Red Blood Count 4.12 L Hemoglobin 12.5 Hematocrit 37.3 Mean Corpuscular Volume 90.5 Mean Corpuscular Hemoglobin 30.3 Mean Corpuscular Hemoglobin Concent 33.5 Red Cell Distribution Width 12.4 Platelet Count 323 Mean Platelet Volume 11.3 H Neutrophils % 78.8 H Lymphocytes % 11.2 L Monocytes % 8.0 Eosinophils % 1.2 Basophils % 0.4 Nucleated Red Blood Cells % 0.0 Neutrophils # 10.8 H Lymphocytes # 1.5 Monocytes # 1.1 H Eosinophils # 0.2 Basophils # 0.1 Nucleated Red Blood Cells # 0.0 Sodium Level 145 H Potassium Level 3.6 Chloride Level 104 Carbon Dioxide Level 22 Anion Gap 23 H Blood Urea Nitrogen 4 L Creatinine 0.62 Glucose Level 105 Calcium Level 9.4 Phosphorus Level 2.5 Magnesium Level 1.6 L Total Bilirubin 0.5 Direct Bilirubin 0.00 Indirect Bilirubin 0.5 Aspartate Amino Transf (AST/SGOT) 28 Alanine Aminotransferase (ALT/SGPT) 27 Alkaline Phosphatase 59 Total Protein 7.3 Albumin 4.6 Globulin 2.70 Albumin/Globulin Ratio 1.70 Medications Current Medications Sodium Chloride (NS) 1,000 ml @ 80 mls/hr [id number] IV Last administered on 04/05t 15:21; Admin Dose 80 MLS/HR; Start 04/04/17 at 01:06 Acetaminophen (Tylenol Tab) 650 mg Q6H PRN PO PAIN LEVEL 1-3 OR FEVER; Start at 01:30 Docusate Sodium (Colace) 100 mg Q12H PRN PO CONSTIPATION; Start 04/04/17 at 01: 30 Bisacodyl (Dulcolax) 5 mg DAILY PRN PO CONSTIPATION; Start 04/04/17 at 01:30 Pantoprazole (Protonix Iv) 40 mg DAILY@06 IV Last administered on 04/06/17 08: 33; Admin Dose 40 MG; Start 04/04/17 at 06:00 Lorazepam (Ativan) 2 mg PRN PRN IV SEIZURES Last administered on 04/06/17 05: 16; Admin Dose 2 MG; Start 04/06/17 at 04:32 Lamotrigine (Lamictal) 250 mg BID PO ; Start 04/06/17 at 14:00 Phenytoin 100 mg 100 mg Q8 IV ; Start 04/06/17 at 14:00 Levetiracetam (Keppra 1,500mg/ 100ml (Pmx)) 100 ml @ 400 mls/hr Q12 IVPB Last administered on 04/06/17 10:55; Admin Dose 400 MLS/HR; Start 04/06/17 at 09:30 Assessment/Plan Chief Complaint/Hosp Course Neuroexam: Lethargic, briefly arousable goes back to sleep, follows commands, fluent speech, slurred secondary to tongue bites, CN II-XII int, perll 4 to 2 mm , Motor, sensory, coord int, DTR 2+, no babinski A/P: Seizure d/o, s/p breakthrough seizures, more seziures earlier this AM, moved to ICU Now dilantin, keppra 1000 tid, lamictal 250 bid Problems: CARLOS LUCERO MD Apr 06, 2017 11:03
[2017-04-06] MEDS ORDERED: PHENYTOIN IV ONE (14:00)
[2017-04-06] MEDS ORDERED: SOD CHLORIDE 0.9% IV ONE (14:00)
[2017-04-06] MEDS ORDERED: LEVETIRACETAM 1000 MG (PMX) 100 ML IVPB SCH (14:00)
[2017-04-06] MEDS: PHENYTOIN 100 MG INJ IV SCH ×2 (14:12→21:36)
[2017-04-06] MEDS: LAMOTRIGINE 100 MG TAB PO SCH ×2 (14:14→21:30)
--- NOTE | 2017-04-06 19:48 | PN ---
Date/Time of Note Date/Time of Note DATE: 04/06/17 TIME: 19:48 Assessment/Plan VTE Prophylaxis VTE Prophylaxis Intervention: SCD's Lines/Catheters IV Catheter Type (from Nrsg): Peripheral IV Urinary Cath still in place: Yes Assessment/Plan Assessment/Plan 1. Seizure d/o: - had multiple seizures this morning and was transferred to ICU and was given several ativans and loaded with dilantin. Was seen this am by Dr. Cuevas with plan to restart home dose of lamictal 250 bid. Pt is currently very lethargic. She attempted to open eye, but not following commands - cont seizure precaution 2. Acute Encephalopathy: 2/2 post-ictal state. 3. leukocytosis: likely reactive(stress-induced): down trending. UA neg for UTI Subjective 24 Hr Interval Summary Free Text/Dictation in deep sleep Exam/Review of Systems Vital Signs Vitals Vital Signs Date Time Temp Pulse Resp B/P Pulse Ox O2 Delivery O2 Flow Rate FiO2 04/06/17 18:30 106 19 106/73 96 04/06/17 18:00 Room Air 04/06/17 16:00 99.8 Intake and Output 04/05/17 04/05/17 04/06/17 15:00 23:00 07:00 Intake Total 500 ml 180 ml Output Total 2000 ml Balance -1500 ml 180 ml Exam Constitutional: other (lethargic) Head: atraumatic, normocephalic Eyes: PERRL Respiratory: clear to auscultation, normal air movement Cardiovascular: nl pulses, regular rate and rhythm Gastrointestinal: soft Extremities: normal pulses Results Result Diagram: 04/06/17 0625 04/06/17 0625 Results 24 hrs Laboratory Tests Test 04/06/17 06:25 White Blood Count 13.8 H Red Blood Count 4.12 L Hemoglobin 12.5 Hematocrit 37.3 Mean Corpuscular Volume 90.5 Mean Corpuscular Hemoglobin 30.3 Mean Corpuscular Hemoglobin Concent 33.5 Red Cell Distribution Width 12.4 Platelet Count 323 Mean Platelet Volume 11.3 H Neutrophils % 78.8 H Lymphocytes % 11.2 L Monocytes % 8.0 Eosinophils % 1.2 Basophils % 0.4 Nucleated Red Blood Cells % 0.0 Neutrophils # 10.8 H Lymphocytes # 1.5 Monocytes # 1.1 H Eosinophils # 0.2 Basophils # 0.1 Nucleated Red Blood Cells # 0.0 Sodium Level 145 H Potassium Level 3.6 Chloride Level 104 Carbon Dioxide Level 22 Anion Gap 23 H Blood Urea Nitrogen 4 L Creatinine 0.62 Glucose Level 105 Calcium Level 9.4 Phosphorus Level 2.5 Magnesium Level 1.6 L Total Bilirubin 0.5 Direct Bilirubin 0.00 Indirect Bilirubin 0.5 Aspartate Amino Transf (AST/SGOT) 28 Alanine Aminotransferase (ALT/SGPT) 27 Alkaline Phosphatase 59 Total Protein 7.3 Albumin 4.6 Globulin 2.70 Albumin/Globulin Ratio 1.70 Medications Medications Current Medications Sodium Chloride (NS) 1,000 ml @ 80 mls/hr [id number] IV Last administered on 04/06 18:49; Admin Dose 80 MLS/HR; Start 04/04/17 at 01:06 Acetaminophen (Tylenol Tab) 650 mg Q6H PRN PO PAIN LEVEL 1-3 OR FEVER; Start at 01:30 Docusate Sodium (Colace) 100 mg Q12H PRN PO CONSTIPATION; Start 04/04/17 at 01: 30 Bisacodyl (Dulcolax) 5 mg DAILY PRN PO CONSTIPATION; Start 04/04/17 at 01:30 Pantoprazole (Protonix Iv) 40 mg DAILY@06 IV Last administered on 04/06/17 08: 33; Admin Dose 40 MG; Start 04/04/17 at 06:00 Lorazepam (Ativan) 2 mg PRN PRN IV SEIZURES Last administered on 04/06/17 05: 16; Admin Dose 2 MG; Start 04/06/17 at 04:32 Lamotrigine (Lamictal) 250 mg BID PO Last administered on 04/06/17 14:14; Admin Dose 250 MG; Start 04/06/17 at 14:00 Phenytoin 100 mg 100 mg Q8 IV Last administered on 04/06/17 14:12; Admin Dose 100 MG; Start 04/06/17 at 14:00 Levetiracetam (Keppra 1,500mg/ 100ml (Pmx)) 100 ml @ 400 mls/hr Q12 IVPB Last administered on 04/06/17 10:55; Admin Dose 400 MLS/HR; Start 04/06/17 at 09:30 SIMI BRO MD Apr 06, 2017 19:48
[2017-04-07] VITALS (23 sets, daily range): BP systolic 102–130; BP diastolic 54–84; PULSE 65–98; RESP 10–20
[2017-04-07] MEDS: PHENYTOIN 100 MG INJ IV SCH ×3 (06:01→22:06)
[2017-04-07] MEDS: PANTOPRAZOLE 40 MG INJ IV SCH (06:01)
[2017-04-07 06:17] LABS: BASOPHIL # 0.1 10^3/ul (0.0-0.1); BASOPHILS % 0.4 % (0.0-2.0); EOSINOPHILS # 0.5 10^3/ul (0.0-0.5); EOSINOPHILS % 4.2 % (0.0-7.0); HEMATOCRIT 35.5 % (37.0-47.0); LYMPHOCYTES % 16.9 % (15.0-51.0); MEAN CORPUSCULAR HEMOGLOBIN 30.7 pg (29.0-33.0); MEAN CORPUSCULAR HGB CONC 33.8 g/dl (32.0-37.0); MEAN CORPUSCULAR VOLUME 90.8 fl (82.0-101.0); MEAN PLATELET VOLUME 10.7 fl (7.4-10.4); MONOCYTE # 1.1 10^3/ul (0.3-0.9); MONOCYTES % 9.4 % (0.0-11.0); NEUTROPHIL # 8.2 10^3/ul (1.6-7.5); NEUTROPHILS % 68.7 % (39.0-77.0); PLATELET COUNT 285 10^3/UL (140-415); RED BLOOD COUNT 3.91 10^6/ul (4.20-5.40); RED CELL DISTRIBUTION WIDTH 12.3 % (11.5-14.5)
[2017-04-07 06:56] LABS: ALBUMIN/GLOBULIN RATIO 1.53; BILIRUBIN,INDIRECT 0.5 mg/dl (0-1.1); BILIRUBIN,TOTAL 0.5 mg/dl (0.2-1.3); CALCIUM 8.8 mg/dl (8.4-10.2); CREATININE 0.59 mg/dl (0.44-1.00); MAGNESIUM 1.6 mg/dl (1.7-2.5); PHOSPHORUS 3.9 mg/dl (2.5-4.9); POTASSIUM 3.3 mmol/L (3.5-5.1); TOTAL PROTEIN 6.6 g/dl (6.1-8.1)
[2017-04-07] MEDS: SOD CHLORIDE 0.9% 1,000 ML IV SCH (08:56)
[2017-04-07] MEDS: LAMOTRIGINE 100 MG TAB PO SCH ×2 (08:56→20:16)
[2017-04-07] MEDS: LEVETIRACETAM 1500 MG (PMX) 100 ML IVPB SCH ×2 (08:56→20:15)
[2017-04-07] MEDS ORDERED: POTASSIUM CHLORIDE (SR) 20 MEQ TAB PO STA (10:29)
[2017-04-07] MEDS ORDERED: MAGNESIUM SULFATE 3 GM in SOD CHLORIDE 0.9% 100 ML IVPB ONE (12:00)
--- NOTE | 2017-04-07 13:02 | CONS ---
Date/Time of Note Date/Time of Note DATE: 04/07/17 TIME: 12:57 Consult Date/Type/Reason Admit Date/Time Apr 04, 2017 at 00:52 Initial Consult Date 04/07/17 Type of Consultation: neurology Reason for Consultation seizure management Subjective follow up for Dr. Bailey no seizures overnight restarted on Lamictal 250 mg BID, Keppra 1500 mg BID, Dilantin 100 mg q8h level returned 21.9 encephalopathy improving Objective Vital Signs Date Time Temp Pulse Resp B/P Pulse Ox O2 Delivery O2 Flow Rate FiO2 04/07/17 12:30 90 20 116/71 100 04/07/17 12:00 99.0 Room Air Intake and Output 04/06/17 04/06/17 04/07/17 15:00 23:00 07:00 Intake Total 1080 ml 860 ml 480 ml Output Total 800 ml 430 ml 499 ml Balance 280 ml 430 ml -19 ml Exam awake and alert oriented to self, hospital, date is April 05 follows commands, still encephalopathic improving from prior documented exams CN: RAN, couple beats nystagmus resolved spontaneous no facial asymmetry palate upgoing uvula midline scm/trap intact Motor: 5/5 UE and LE no drift Coordination no ataxia reflexes 2+ Results/Medications Result Diagram: 04/07/17 0559 04/07/17 0559 Results 24 hrs Laboratory Tests Test 04/07/17 05:59 White Blood Count 12.0 H Red Blood Count 3.91 L Hemoglobin 12.0 Hematocrit 35.5 L Mean Corpuscular Volume 90.8 Mean Corpuscular Hemoglobin 30.7 Mean Corpuscular Hemoglobin Concent 33.8 Red Cell Distribution Width 12.3 Platelet Count 285 Mean Platelet Volume 10.7 H Neutrophils % 68.7 Lymphocytes % 16.9 Monocytes % 9.4 Eosinophils % 4.2 Basophils % 0.4 Nucleated Red Blood Cells % 0.0 Neutrophils # 8.2 H Lymphocytes # 2.0 Monocytes # 1.1 H Eosinophils # 0.5 Basophils # 0.1 Nucleated Red Blood Cells # 0.0 Sodium Level 144 Potassium Level 3.3 L Chloride Level 104 Carbon Dioxide Level 25 Anion Gap 18 H Blood Urea Nitrogen 4 L Creatinine 0.59 Glucose Level 73 Calcium Level 8.8 Phosphorus Level 3.9 Magnesium Level 1.6 L Total Bilirubin 0.5 Direct Bilirubin 0.00 Indirect Bilirubin 0.5 Aspartate Amino Transf (AST/SGOT) 22 Alanine Aminotransferase (ALT/SGPT) 28 Alkaline Phosphatase 48 Total Protein 6.6 Albumin 4.0 Globulin 2.60 Albumin/Globulin Ratio 1.53 Phenytoin (Dilantin) Level 21.9 *H Medications Current Medications Sodium Chloride (NS) 1,000 ml @ 80 mls/hr [id number] IV Last administered on 04/07 08:56; Admin Dose 80 MLS/HR; Start 04/04/17 at 01:06 Acetaminophen (Tylenol Tab) 650 mg Q6H PRN PO PAIN LEVEL 1-3 OR FEVER; Start at 01:30 Docusate Sodium (Colace) 100 mg Q12H PRN PO CONSTIPATION; Start 04/04/17 at 01: 30 Bisacodyl (Dulcolax) 5 mg DAILY PRN PO CONSTIPATION; Start 04/04/17 at 01:30 Pantoprazole (Protonix Iv) 40 mg DAILY@06 IV Last administered on 04/07/17 06: 01; Admin Dose 40 MG; Start 04/04/17 at 06:00 Lorazepam (Ativan) 2 mg PRN PRN IV SEIZURES Last administered on 04/06/17 05: 16; Admin Dose 2 MG; Start 04/06/17 at 04:32 Lamotrigine (Lamictal) 250 mg BID PO Last administered on 04/07/17 08:56; Admin Dose 250 MG; Start 04/06/17 at 14:00 Phenytoin 100 mg 100 mg Q8 IV Last administered on 04/07/17 06:01; Admin Dose 100 MG; Start 04/06/17 at 14:00 Levetiracetam 100 ml @ 400 mls/hr Q12 IVPB Last administered on 04/07/17 08: 56; Admin Dose 400 MLS/HR; Start 04/06/17 at 09:30 Magnesium Sulfate/ Sodium Chloride (Magnesium Sulfate/NS) 106 ml @ 35.333 mls/ hr ONCE ONCE IVPB Last administered on 04/07/17 11:48; Admin Dose 35.333 MLS/ HR; Start 04/07/17 at 12:00; Stop 04/07/17 at 14:59 Assessment/Plan Chief Complaint/Hosp Course 27 yo female with hx of seizures since age 16 admitted with breakthrough seizures. continue ICU monitoring until encephalopathy resolves, seizure precaution 0.1 mg/kg ativan for further seizure max dose 4 mg ativan continue Dilantin, Keppra, Lamictal at current doses patient should be advised to follow up with and establish care with outpatient neurologist to further manage epilepsy she previously saw a neurologist in [facility] and has not been following up ensure she is currently not taking an OCP as this may affect the level of AED's as well cautioned against alcohol and drug use, advised good sleep hygiene driving prohibited per [place] state regulations up to 6 months Problems: KYLEE PULIDO MD Apr 07, 2017 13:02
--- NOTE | 2017-04-07 13:57 | PN ---
Date/Time of Note Date/Time of Note DATE: 04/07/17 TIME: 13:55 Assessment/Plan VTE Prophylaxis VTE Prophylaxis Intervention: SCD's Lines/Catheters IV Catheter Type (from Nrs): Peripheral IV Assessment/Plan Chief Complaint/Hosp Course 1. Seizure d/o: -Patient had no seizures overnight Neurology following, continue Dilantin, Keppra and Lamictal - cont seizure precautions, downgrade to telemetry 2. Acute Encephalopathy: 2/2 post-ictal state-improved 3. leukocytosis: likely reactive(stress-induced): down trending. UA neg for UTI Prophylaxis: SCDs Problems: Subjective 24 Hr Interval Summary Constitutional: no complaints Exam/Review of Systems Vital Signs Vitals Vital Signs Date Time Temp Pulse Resp B/P Pulse Ox O2 Delivery O2 Flow Rate FiO2 04/07/17 12:30 90 20 116/71 100 04/07/17 12:00 99.0 Room Air Intake and Output 04/06/17 04/06/17 04/07/17 15:00 23:00 07:00 Intake Total 1080 ml 860 ml 480 ml Output Total 800 ml 430 ml 499 ml Balance 280 ml 430 ml -19 ml Exam Constitutional: alert Respiratory: clear to auscultation Cardiovascular: regular rate and rhythm Gastrointestinal: soft, No distended Musculoskeletal: nl extremities to inspection Results Result Diagram: 04/07/17 0559 04/07/17 0559 Results 24 hrs Laboratory Tests Test 04/07/17 05:59 White Blood Count 12.0 H Red Blood Count 3.91 L Hemoglobin 12.0 Hematocrit 35.5 L Mean Corpuscular Volume 90.8 Mean Corpuscular Hemoglobin 30.7 Mean Corpuscular Hemoglobin Concent 33.8 Red Cell Distribution Width 12.3 Platelet Count 285 Mean Platelet Volume 10.7 H Neutrophils % 68.7 Lymphocytes % 16.9 Monocytes % 9.4 Eosinophils % 4.2 Basophils % 0.4 Nucleated Red Blood Cells % 0.0 Neutrophils # 8.2 H Lymphocytes # 2.0 Monocytes # 1.1 H Eosinophils # 0.5 Basophils # 0.1 Nucleated Red Blood Cells # 0.0 Sodium Level 144 Potassium Level 3.3 L Chloride Level 104 Carbon Dioxide Level 25 Anion Gap 18 H Blood Urea Nitrogen 4 L Creatinine 0.59 Glucose Level 73 Calcium Level 8.8 Phosphorus Level 3.9 Magnesium Level 1.6 L Total Bilirubin 0.5 Direct Bilirubin 0.00 Indirect Bilirubin 0.5 Aspartate Amino Transf (AST/SGOT) 22 Alanine Aminotransferase (ALT/SGPT) 28 Alkaline Phosphatase 48 Total Protein 6.6 Albumin 4.0 Globulin 2.60 Albumin/Globulin Ratio 1.53 Phenytoin (Dilantin) Level 21.9 *H Medications Medications Current Medications Sodium Chloride (NS) 1,000 ml @ 80 mls/hr [id number] IV Last administered on 04/07 08:56; Admin Dose 80 MLS/HR; Start 04/04/17 at 01:06 Acetaminophen (Tylenol Tab) 650 mg Q6H PRN PO PAIN LEVEL 1-3 OR FEVER; Start at 01:30 Docusate Sodium (Colace) 100 mg Q12H PRN PO CONSTIPATION; Start 04/04/17 at 01: 30 Bisacodyl (Dulcolax) 5 mg DAILY PRN PO CONSTIPATION; Start 04/04/17 at 01:30 Pantoprazole (Protonix Iv) 40 mg DAILY@06 IV Last administered on 04/07/17 06: 01; Admin Dose 40 MG; Start 04/04/17 at 06:00 Lorazepam (Ativan) 2 mg PRN PRN IV SEIZURES Last administered on 04/06/17 05: 16; Admin Dose 2 MG; Start 04/06/17 at 04:32 Lamotrigine (Lamictal) 250 mg BID PO Last administered on 04/07/17 08:56; Admin Dose 250 MG; Start 04/06/17 at 14:00 Phenytoin 100 mg 100 mg Q8 IV Last administered on 04/07/17 06:01; Admin Dose 100 MG; Start 04/06/17 at 14:00 Levetiracetam 100 ml @ 400 mls/hr Q12 IVPB Last administered on 04/07/17 08: 56; Admin Dose 400 MLS/HR; Start 04/06/17 at 09:30 Magnesium Sulfate/ Sodium Chloride (Magnesium Sulfate/NS) 106 ml @ 35.333 mls/ hr ONCE ONCE IVPB Last administered on 04/07/17 11:48; Admin Dose 35.333 MLS/ HR; Start 04/07/17 at 12:00; Stop 04/07/17 at 14:[address] Apr 07, 2017 13:57
--- NOTE | 2017-04-07 15:22 | CONS ---
Date/Time of Note Date/Time of Note DATE: 04/07/17 TIME: 15:19 Assessment Additional comments: EEG report dictated [id number]. Abnormal, no ongoing seizures, no definite epileptiform discharges, + background slowing, beta activity secondary to medications, frontal intermittent delta activity, metabolic vs postictal. CARLOS LUCERO MD Apr 07, 2017 15:22
[2017-04-08] VITALS (12 sets, daily range): BP systolic 92–117; BP diastolic 54–69; PULSE 73–92; RESP 18–19
[2017-04-08] MEDS: SOD CHLORIDE 0.9% 1,000 ML IV SCH ×3 (04:05→17:24)
[2017-04-08] MEDS: PHENYTOIN 100 MG INJ IV SCH ×3 (05:19→22:00)
[2017-04-08] MEDS: PANTOPRAZOLE 40 MG INJ IV SCH (05:21)
[2017-04-08 07:22] LABS: BASOPHILS % 0.4 % (0.0-2.0); EOSINOPHILS # 0.5 10^3/ul (0.0-0.5); EOSINOPHILS % 4.9 % (0.0-7.0); HEMATOCRIT 33.5 % (37.0-47.0); HEMOGLOBIN 11.3 g/dl (12.0-16.0); LYMPHOCYTES # 1.6 10^3/ul (0.8-2.9); LYMPHOCYTES % 16.6 % (15.0-51.0); MEAN CORPUSCULAR HEMOGLOBIN 30.9 pg (29.0-33.0); MEAN CORPUSCULAR HGB CONC 33.7 g/dl (32.0-37.0); MEAN CORPUSCULAR VOLUME 91.5 fl (82.0-101.0); MEAN PLATELET VOLUME 10.5 fl (7.4-10.4); MONOCYTE # 0.8 10^3/ul (0.3-0.9); MONOCYTES % 8.8 % (0.0-11.0); NEUTROPHIL # 6.6 10^3/ul (1.6-7.5); NEUTROPHILS % 68.9 % (39.0-77.0); PLATELET COUNT 266 10^3/UL (140-415); RED BLOOD COUNT 3.66 10^6/ul (4.20-5.40); RED CELL DISTRIBUTION WIDTH 12.2 % (11.5-14.5); WHITE BLOOD COUNT 9.6 10^3/ul (4.8-10.8)
[2017-04-08 07:45] LABS: ALBUMIN 3.9 g/dl (3.3-4.9); ALBUMIN/GLOBULIN RATIO 1.56; BILIRUBIN,INDIRECT 0.2 mg/dl (0-1.1); BILIRUBIN,TOTAL 0.2 mg/dl (0.2-1.3); CALCIUM 8.6 mg/dl (8.4-10.2); CREATININE 0.62 mg/dl (0.44-1.00); PHOSPHORUS 2.9 mg/dl (2.5-4.9); POTASSIUM 3.9 mmol/L (3.5-5.1); TOTAL PROTEIN 6.4 g/dl (6.1-8.1)
[2017-04-08] MEDS: LEVETIRACETAM 1500 MG (PMX) 100 ML IVPB SCH ×2 (08:46→20:18)
[2017-04-08] MEDS: LAMOTRIGINE 100 MG TAB PO SCH ×2 (08:46→20:19)
--- NOTE | 2017-04-08 11:31 | CONS ---
Date/Time of Note Date/Time of Note DATE: 04/08/17 TIME: 11:29 Consult Date/Type/Reason Admit Date/Time Apr 04, 2017 at 00:52 Initial Consult Date 04/07/17 Type of Consultation: neurology Reason for Consultation status epilepticus Subjective transfered out of the ICU remains encephalopathic still EEG -Abnormal, no ongoing seizures, no definite epileptiform discharges, + background slowing, beta activity secondary to medications, frontal intermittent delta activity, metabolic vs postictal. Objective Vital Signs Date Time Temp Pulse Resp B/P Pulse Ox O2 Delivery O2 Flow Rate FiO2 04/08/17 08:16 80 04/08/17 07:37 98.1 18 108/60 98 04/07/17 17:33 Room Air Intake and Output 04/07/17 04/07/17 04/08/17 15:00 23:00 07:00 Intake Total 100 ml 1620 ml 1140 ml Output Total 800 ml 1700 ml Balance 100 ml 820 ml -560 ml Exam awake and alert slow to response oriented to self, not to date or hospital unable to provide information regarding her doctor in [place] follows simple commands CN: II-XII Motor: 5/5 UE and LE Tone wnl Reflexes 2+ throughout toes down Results/Medications Result Diagram: 04/08/17 0707 04/08/17 0707 Results 24 hrs Laboratory Tests Test 04/08/17 07:07 White Blood Count 9.6 Red Blood Count 3.66 L Hemoglobin 11.3 L Hematocrit 33.5 L Mean Corpuscular Volume 91.5 Mean Corpuscular Hemoglobin 30.9 Mean Corpuscular Hemoglobin Concent 33.7 Red Cell Distribution Width 12.2 Platelet Count 266 Mean Platelet Volume 10.5 H Neutrophils % 68.9 Lymphocytes % 16.6 Monocytes % 8.8 Eosinophils % 4.9 Basophils % 0.4 Nucleated Red Blood Cells % 0.0 Neutrophils # 6.6 Lymphocytes # 1.6 Monocytes # 0.8 Eosinophils # 0.5 Basophils # 0.0 Nucleated Red Blood Cells # 0.0 Sodium Level 144 Potassium Level 3.9 Chloride Level 106 Carbon Dioxide Level 23 Anion Gap 19 H Blood Urea Nitrogen 4 L Creatinine 0.62 Glucose Level 80 Calcium Level 8.6 Phosphorus Level 2.9 Magnesium Level 2.0 Total Bilirubin 0.2 Direct Bilirubin 0.00 Indirect Bilirubin 0.2 Aspartate Amino Transf (AST/SGOT) 19 Alanine Aminotransferase (ALT/SGPT) 24 Alkaline Phosphatase 49 Total Protein 6.4 Albumin 3.9 Globulin 2.50 Albumin/Globulin Ratio 1.56 Medications Current Medications Sodium Chloride (NS) 1,000 ml @ 80 mls/hr [id number] IV Last administered on 04:05; Admin Dose 80 MLS/HR; Start 04/04/17 at 01:06 Acetaminophen (Tylenol Tab) 650 mg Q6H PRN PO PAIN LEVEL 1-3 OR FEVER; Start at 01:30 Docusate Sodium (Colace) 100 mg Q12H PRN PO CONSTIPATION; Start 04/04/17 at 01: 30 Bisacodyl (Dulcolax) 5 mg DAILY PRN PO CONSTIPATION; Start 04/04/17 at 01:30 Pantoprazole (Protonix Iv) 40 mg DAILY@06 IV Last administered on 04/08/17 05: 21; Admin Dose 40 MG; Start 04/04/17 at 06:00 Lorazepam (Ativan) 2 mg PRN PRN IV SEIZURES Last administered on 04/06/17 05: 16; Admin Dose 2 MG; Start 04/06/17 at 04:32 Lamotrigine (Lamictal) 250 mg BID PO Last administered on 04/08/17 08:46; Admin Dose 250 MG; Start 04/06/17 at 14:00 Phenytoin 100 mg 100 mg Q8 IV Last administered on 04/08/17 05:19; Admin Dose 100 MG; Start 04/06/17 at 14:00 Levetiracetam (Keppra 1,500mg/ 100ml (Pmx)) 100 ml @ 400 mls/hr Q12 IVPB Last administered on 04/08/17 08:46; Admin Dose 400 MLS/HR; Start 04/06/17 at 09:30 Assessment/Plan Chief Complaint/Hosp Course 27 yo female with hx of seizures since age 16 admitted with breakthrough seizures. encephalopathy gradually resolving, continue to monitor until at baseline mental status 0.1 mg/kg ativan for further seizure max dose 4 mg ativan continue Dilantin, Keppra, Lamictal at current doses patient should be advised to follow up with and establish care with outpatient neurologist to further manage epilepsy she previously saw a neurologist in [facility] and has not been following up cautioned against alcohol and drug use, advised good sleep hygiene driving prohibited per [place] state regulations up to 6 months continue to monitor until encephalopathy post-ictal state resolves Problems: KYLEE PULIDO MD Apr 08, 2017 11:31
--- NOTE | 2017-04-08 16:07 | PN ---
Date/Time of Note Date/Time of Note DATE: 04/08/17 TIME: 16:06 Assessment/Plan VTE Prophylaxis VTE Prophylaxis Intervention: SCD's Lines/Catheters IV Catheter Type (from Nrs): Peripheral IV Assessment/Plan Chief Complaint/Hosp Course 1. Seizure d/o: Stable -Patient had no seizures overnight -Neurology following, continue Dilantin, Keppra and Lamictal - cont seizure precautions, downgrade to telemetry 2. Acute Encephalopathy: Likely 2/2 post-ictal state-improved but persists -Plans for MRI brain per neurology 3. leukocytosis: likely reactive(stress-induced): down trending. UA neg for UTI Prophylaxis: SCDs Problems: Subjective 24 Hr Interval Summary Constitutional: disoriented Exam/Review of Systems Vital Signs Vitals Vital Signs Date Time Temp Pulse Resp B/P Pulse Ox O2 Delivery O2 Flow Rate FiO2 04/08/17 15:44 98.2 68 18 112/63 97 04/07/17 17:33 Room Air Intake and Output 04/07/17 04/07/17 04/08/17 15:00 23:00 07:00 Intake Total 100 ml 1620 ml 1140 ml Output Total 800 ml 1700 ml Balance 100 ml 820 ml -560 ml Exam Psych: confusion Respiratory: clear to auscultation Cardiovascular: regular rate and rhythm Gastrointestinal: soft, No distended Musculoskeletal: nl extremities to inspection Results Result Diagram: 04/08/17 0707 04/08/17 0707 Results 24 hrs Laboratory Tests Test 04/08/17 07:07 White Blood Count 9.6 Red Blood Count 3.66 L Hemoglobin 11.3 L Hematocrit 33.5 L Mean Corpuscular Volume 91.5 Mean Corpuscular Hemoglobin 30.9 Mean Corpuscular Hemoglobin Concent 33.7 Red Cell Distribution Width 12.2 Platelet Count 266 Mean Platelet Volume 10.5 H Neutrophils % 68.9 Lymphocytes % 16.6 Monocytes % 8.8 Eosinophils % 4.9 Basophils % 0.4 Nucleated Red Blood Cells % 0.0 Neutrophils # 6.6 Lymphocytes # 1.6 Monocytes # 0.8 Eosinophils # 0.5 Basophils # 0.0 Nucleated Red Blood Cells # 0.0 Sodium Level 144 Potassium Level 3.9 Chloride Level 106 Carbon Dioxide Level 23 Anion Gap 19 H Blood Urea Nitrogen 4 L Creatinine 0.62 Glucose Level 80 Calcium Level 8.6 Phosphorus Level 2.9 Magnesium Level 2.0 Total Bilirubin 0.2 Direct Bilirubin 0.00 Indirect Bilirubin 0.2 Aspartate Amino Transf (AST/SGOT) 19 Alanine Aminotransferase (ALT/SGPT) 24 Alkaline Phosphatase 49 Total Protein 6.4 Albumin 3.9 Globulin 2.50 Albumin/Globulin Ratio 1.56 Medications Medications Current Medications Sodium Chloride (NS) 1,000 ml @ 80 mls/hr [id number] IV Last administered on 04:05; Admin Dose 80 MLS/HR; Start 04/04/17 at 01:06 Acetaminophen (Tylenol Tab) 650 mg Q6H PRN PO PAIN LEVEL 1-3 OR FEVER; Start at 01:30 Docusate Sodium (Colace) 100 mg Q12H PRN PO CONSTIPATION; Start 04/04/17 at 01: 30 Bisacodyl (Dulcolax) 5 mg DAILY PRN PO CONSTIPATION; Start 04/04/17 at 01:30 Pantoprazole (Protonix Iv) 40 mg DAILY@06 IV Last administered on 04/08/17 05: 21; Admin Dose 40 MG; Start 04/04/17 at 06:00 Lorazepam (Ativan) 2 mg PRN PRN IV SEIZURES Last administered on 04/06/17 05: 16; Admin Dose 2 MG; Start 04/06/17 at 04:32 Lamotrigine (Lamictal) 250 mg BID PO Last administered on 04/08/17 08:46; Admin Dose 250 MG; Start 04/06/17 at 14:00 Phenytoin 100 mg 100 mg Q8 IV Last administered on 04/08/17 13:36; Admin Dose 100 MG; Start 04/06/17 at 14:00 Levetiracetam (Keppra 1,500mg/ 100ml (Pmx)) 100 ml @ 400 mls/hr Q12 IVPB Last administered on 04/08/17 08:46; Admin Dose 400 MLS/HR; Start 04/06/17 at 09:[address] Apr 08, 2017 16:07
--- NOTE | 2017-04-08 18:24 | RADRPT ---
PROCEDURE: MR Brain without contrast. CLINICAL INDICATION: Seizures; post ictal for PRES TECHNIQUE: A high resolution MRI of the brain was performed utilizing the following sequences: Sag ittal and axial T1 weighted, axial T2 weighted, axial FLAIR, coronal GRE, and axial diffusion weight ed with ADC mapping. Images were reviewed high-resolution PACS workstation. Coronal T2/FLAIR and T1 3D SPGR sequences were also acquired. Additional axial and coronal post contrast images were obtai elyse. COMPARISON: None FINDINGS: No acute parenchymal hemorrhage, significant mass effect, or midline shift. No evidence of recent in farct.No suspicious parenchymal hypointense signal abnormalities are seen on the GRE images to sugge st the presence of blood degradation products. Preserved maharaj white differentiation. The mesial temporal lobes demonstrate normal signal intensity and volume bilaterally. No evidence o f focal cortical thickening or indistinctness is identified. No evidence of focal cortical encepha lomalacia. The ventricles are normal in size for age. Normal flow voids are visible in the proximal intracrania l arteries suggesting their patency. Mild bilateral maxillary sinus mucosal thickening. IMPRESSION: No evidence of acute intracranial abnormality or recent infarct. No evidence of posterior reversible encephalopathy syndrome (PRES) No evidence of mesial temporal sclerosis, cortical dysplasia, or cortical encephalomalacia. RPTAT: AA .Fabio Rosa MD, Date Time Electronically viewed and signed by .Fabio Rosa MD, MD on 04/08/2017 18:24 .T/
[2017-04-09] VITALS (12 sets, daily range): BP systolic 108–118; BP diastolic 63–70; PULSE 70–90; RESP 18–19
[2017-04-09] MEDS: PHENYTOIN 100 MG INJ IV SCH (05:23)
[2017-04-09] MEDS: PANTOPRAZOLE 40 MG INJ IV SCH (05:23)
[2017-04-09] MEDS: SOD CHLORIDE 0.9% 1,000 ML IV SCH (06:06)
[2017-04-09 07:00] LABS: BASOPHIL # 0.1 10^3/ul (0.0-0.1); BASOPHILS % 0.6 % (0.0-2.0); EOSINOPHILS # 0.5 10^3/ul (0.0-0.5); EOSINOPHILS % 5.7 % (0.0-7.0); HEMATOCRIT 33.7 % (37.0-47.0); HEMOGLOBIN 11.2 g/dl (12.0-16.0); LYMPHOCYTES # 2.1 10^3/ul (0.8-2.9); LYMPHOCYTES % 26.4 % (15.0-51.0); MEAN CORPUSCULAR HEMOGLOBIN 30.4 pg (29.0-33.0); MEAN CORPUSCULAR HGB CONC 33.2 g/dl (32.0-37.0); MEAN CORPUSCULAR VOLUME 91.6 fl (82.0-101.0); MEAN PLATELET VOLUME 10.7 fl (7.4-10.4); MONOCYTE # 0.8 10^3/ul (0.3-0.9); MONOCYTES % 10.4 % (0.0-11.0); NEUTROPHIL # 4.6 10^3/ul (1.6-7.5); NEUTROPHILS % 56.5 % (39.0-77.0); PLATELET COUNT 278 10^3/UL (140-415); RED BLOOD COUNT 3.68 10^6/ul (4.20-5.40); RED CELL DISTRIBUTION WIDTH 12.2 % (11.5-14.5); WHITE BLOOD COUNT 8.1 10^3/ul (4.8-10.8)
[2017-04-09 07:40] LABS: CALCIUM 8.8 mg/dl (8.4-10.2); CREATININE 0.53 mg/dl (0.44-1.00); POTASSIUM 3.5 mmol/L (3.5-5.1)
[2017-04-09] MEDS: LAMOTRIGINE 100 MG TAB PO SCH ×2 (09:57→21:30)
[2017-04-09] MEDS: LEVETIRACETAM 1500 MG (PMX) 100 ML IVPB SCH ×2 (09:57→21:30)
--- NOTE | 2017-04-09 11:38 | PRO ---
DATE OF PROCEDURE: 04/07/2017 INDICATION: Patient is a 27-year-old lady with history of seizures for 10+ years, status post multiple breakthrough seizures, currently on Lamictal, Keppra and Dilantin. ELECTROCARDIOGRAM: Routine EEG was recorded digitally. Scalp-to- scalp and [id number] montages were recorded and reviewed. electrodes were placed in accordance with international 10-20 system of electrode placement. Symmetrical background activity of [id number] amplitudes was seen predominantly in beta range of 12-16 cycles per second at times are seen getting slightly more organized of 10-12 cycles per second frequently throughout the recording. Patient has episodes usually several-second duration of transient slowing of background predominantly in the frontal regions, 1-2 cycles per second synchronically and symmetrically. According to the technologist, EEG was predominantly sleep study. Occasional vertex waves were observed as well. No definite epileptiform transients were seen. No signs of ongoing electrographic seizures. IMPRESSION: Abnormal study secondary to intermittent, predominantly bifrontal slowing, likely reflects the presence of frontal rhythmical intermittent delta activity. This type of abnormality usually reflects toxic metabolic changes, could be postictal. Presence of beta activity likely secondary to the use of benzodiazepines. Dictated By: Mason Bailey MD /heath/stephen /Document#: [id number] ZENIA
--- NOTE | 2017-04-09 13:32 | CONS ---
Date/Time of Note Date/Time of Note DATE: 04/09/17 TIME: 13:29 Consult Date/Type/Reason Admit Date/Time Apr 04, 2017 at 00:52 Initial Consult Date 04/07/17 Type of Consultation: neurology Reason for Consultation status epilepticus Subjective still very encephalopathic MRI negative for any acute process Objective Vital Signs Date Time Temp Pulse Resp B/P Pulse Ox O2 Delivery O2 Flow Rate FiO2 04/09/17 12:01 80 04/09/17 11:45 98.6 18 118/64 98 04/07/17 17:33 Room Air Intake and Output 04/08/17 04/08/17 04/09/17 15:00 23:00 07:00 Intake Total 1960 ml 120 ml Output Total 650 ml 2000 ml Balance 1310 ml -1880 ml Exam awake and alert slow to response oriented to self, not to date or hospital unable to provide information regarding her doctor in [facility] follows simple commands CN: II-XII Motor: 5/5 UE and LE Tone wnl Reflexes 2+ throughout toes down Results/Medications Result Diagram: 04/09/17 0641 04/09/17 0641 Results 24 hrs Laboratory Tests Test 04/09/17 06:41 White Blood Count 8.1 Red Blood Count 3.68 L Hemoglobin 11.2 L Hematocrit 33.7 L Mean Corpuscular Volume 91.6 Mean Corpuscular Hemoglobin 30.4 Mean Corpuscular Hemoglobin Concent 33.2 Red Cell Distribution Width 12.2 Platelet Count 278 Mean Platelet Volume 10.7 H Neutrophils % 56.5 Lymphocytes % 26.4 Monocytes % 10.4 Eosinophils % 5.7 Basophils % 0.6 Nucleated Red Blood Cells % 0.0 Neutrophils # 4.6 Lymphocytes # 2.1 Monocytes # 0.8 Eosinophils # 0.5 Basophils # 0.1 Nucleated Red Blood Cells # 0.0 Sodium Level 145 H Potassium Level 3.5 Chloride Level 105 Carbon Dioxide Level 26 Anion Gap 18 H Blood Urea Nitrogen 2 L Creatinine 0.53 Glucose Level 78 Calcium Level 8.8 Phenytoin (Dilantin) Level 24.0 *H Medications Current Medications Sodium Chloride (NS) 1,000 ml @ 80 mls/hr [id number] IV Last administered on t 17:24; Admin Dose 80 MLS/HR; Start 04/04/17 at 01:06 Acetaminophen (Tylenol Tab) 650 mg Q6H PRN PO PAIN LEVEL 1-3 OR FEVER; Start at 01:30 Docusate Sodium (Colace) 100 mg Q12H PRN PO CONSTIPATION; Start 04/04/17 at 01: 30 Bisacodyl (Dulcolax) 5 mg DAILY PRN PO CONSTIPATION; Start 04/04/17 at 01:30 Pantoprazole (Protonix Iv) 40 mg DAILY@06 IV Last administered on 04/09/17 05: 23; Admin Dose 40 MG; Start 04/04/17 at 06:00 Lorazepam (Ativan) 2 mg PRN PRN IV SEIZURES Last administered on 04/06/17 05: 16; Admin Dose 2 MG; Start 04/06/17 at 04:32 Lamotrigine (Lamictal) 250 mg BID PO Last administered on 04/09/17 09:57; Admin Dose 250 MG; Start 04/06/17 at 14:00 Phenytoin 100 mg 100 mg Q8 IV Last administered on 04/09/17 05:23; Admin Dose 100 MG; Start 04/06/17 at 14:00 Levetiracetam (Keppra 1,500mg/ 100ml (Pmx)) 100 ml @ 400 mls/hr Q12 IVPB Last administered on 04/09/17 09:57; Admin Dose 400 MLS/HR; Start 04/06/17 at 09:30 Assessment/Plan Chief Complaint/Hosp Course 27 yo female with hx of seizures since age 16 admitted with breakthrough seizures severe encephalopathy. Dilantin toxic now. Dilantin level is 24.0 will dc Dilantin and recheck levels. -still very encephalopathic, continue to monitor -0.1 mg/kg ativan for further seizure max dose 4 mg ativan -continue Keppra, Lamictal at current doses -patient should be advised to follow up with and establish care with outpatient neurologist to further manage epilepsy -she previously saw a neurologist in [place] and has not been following up -cautioned against alcohol and drug use, advised good sleep hygiene driving prohibited per [place] state regulations up to 6 months -continue to monitor until encephalopathy post-ictal state resolves, PT/OT evaluations Problems: KYLEE PULIDO MD Apr 09, 2017 13:32
--- NOTE | 2017-04-09 15:28 | PN ---
Date/Time of Note Date/Time of Note DATE: 04/09/17 TIME: 15:27 Assessment/Plan VTE Prophylaxis VTE Prophylaxis Intervention: SCD's Lines/Catheters IV Catheter Type (from [facility]): Saline Lock Assessment/Plan Chief Complaint/Hosp Course 1. Seizure d/o: Stable -Patient had no seizures overnight -Neurology following, continue Dilantin, Keppra and Lamictal - cont seizure precautions 2. Acute Encephalopathy: Likely 2/2 post-ictal state-improved but persists -MRI brain shows no abnormalities -PT and OT evaluation, DC Lemus 3. leukocytosis: likely reactive(stress-induced)-resolved -UA neg for UTI Prophylaxis: SCDs Problems: Subjective 24 Hr Interval Summary Constitutional: disoriented Exam/Review of Systems Vital Signs Vitals Vital Signs Date Time Temp Pulse Resp B/P Pulse Ox O2 Delivery O2 Flow Rate FiO2 04/09/17 12:01 80 04/09/17 11:45 98.6 18 118/64 98 04/07/17 17:33 Room Air Intake and Output 04/08/17 04/08/17 04/09/17 15:00 23:00 07:00 Intake Total 1960 ml 120 ml Output Total 650 ml 2000 ml Balance 1310 ml -1880 ml Exam Constitutional: alert Psych: confusion Respiratory: clear to auscultation Cardiovascular: regular rate and rhythm Gastrointestinal: soft, No distended Musculoskeletal: nl extremities to inspection Results Result Diagram: 04/09/17 0641 04/09/17 0641 Results 24 hrs Laboratory Tests Test 04/09/17 06:41 White Blood Count 8.1 Red Blood Count 3.68 L Hemoglobin 11.2 L Hematocrit 33.7 L Mean Corpuscular Volume 91.6 Mean Corpuscular Hemoglobin 30.4 Mean Corpuscular Hemoglobin Concent 33.2 Red Cell Distribution Width 12.2 Platelet Count 278 Mean Platelet Volume 10.7 H Neutrophils % 56.5 Lymphocytes % 26.4 Monocytes % 10.4 Eosinophils % 5.7 Basophils % 0.6 Nucleated Red Blood Cells % 0.0 Neutrophils # 4.6 Lymphocytes # 2.1 Monocytes # 0.8 Eosinophils # 0.5 Basophils # 0.1 Nucleated Red Blood Cells # 0.0 Sodium Level 145 H Potassium Level 3.5 Chloride Level 105 Carbon Dioxide Level 26 Anion Gap 18 H Blood Urea Nitrogen 2 L Creatinine 0.53 Glucose Level 78 Calcium Level 8.8 Phenytoin (Dilantin) Level 24.0 *H Medications Medications Current Medications Sodium Chloride (NS) 1,000 ml @ 80 mls/hr [id number] IV Last administered on 17:24; Admin Dose 80 MLS/HR; Start 04/04/17 at 01:06 Acetaminophen (Tylenol Tab) 650 mg Q6H PRN PO PAIN LEVEL 1-3 OR FEVER; Start at 01:30 Docusate Sodium (Colace) 100 mg Q12H PRN PO CONSTIPATION; Start 04/04/17 at 01: 30 Bisacodyl (Dulcolax) 5 mg DAILY PRN PO CONSTIPATION; Start 04/04/17 at 01:30 Pantoprazole (Protonix Iv) 40 mg DAILY@06 IV Last administered on 04/09/17 05: 23; Admin Dose 40 MG; Start 04/04/17 at 06:00 Lorazepam (Ativan) 2 mg PRN PRN IV SEIZURES Last administered on 04/06/17 05: 16; Admin Dose 2 MG; Start 04/06/17 at 04:32 Lamotrigine 250 mg 250 mg BID PO Last administered on 04/09/17 09:57; Admin Dose 250 MG; Start 04/06/17 at 14:00 Levetiracetam (Keppra 1,500mg/ 100ml (Pmx)) 100 ml @ 400 mls/hr Q12 IVPB Last administered on 04/09/17 09:57; Admin Dose 400 MLS/HR; Start 04/06/17 at 09:[address] Apr 09, 2017 15:28
[2017-04-09] MEDS ORDERED: DEXTROSE 5% 1,000 ML IV SCH (15:30)
[2017-04-10] VITALS (12 sets, daily range): BP systolic 98–119; BP diastolic 56–79; PULSE 57–85; RESP 18–20
[2017-04-10 04:27] LABS: ANION GAP 18 (8-16); CALCIUM 9.2 mg/dl (8.4-10.2); CARBON DIOXIDE 27 mmol/L (21-31); CHLORIDE 105 mmol/L (97-110); CREATININE 0.61 mg/dl (0.44-1.00); GLUCOSE 84 mg/dl (70-220); POTASSIUM 3.8 mmol/L (3.5-5.1); SODIUM 146 mmol/L (135-144)
[2017-04-10 04:33] LABS: BLOOD UREA NITROGEN < 2 mg/dl (7-20)
[2017-04-10] MEDS: PANTOPRAZOLE 40 MG INJ IV SCH (06:21)
[2017-04-10] MEDS: LAMOTRIGINE 100 MG TAB PO SCH ×2 (08:27→20:38)
[2017-04-10] MEDS: LEVETIRACETAM 1500 MG (PMX) 100 ML IVPB SCH ×2 (08:28→20:38)
[2017-04-10] MEDS: DEXTROSE 5% 1,000 ML IV SCH ×2 (10:16→20:00)
--- NOTE | 2017-04-10 10:57 | CONS ---
Date/Time of Note Date/Time of Note DATE: 04/10/17 TIME: 10:56 Consult Date/Type/Reason Admit Date/Time Apr 04, 2017 at 00:52 Initial Consult Date 04/07/17 Type of Consultation: neurology Reason for Consultation seizures Subjective remains still encephalopathic gradually improving Dilantin has been held level this am is 21.1 Objective Vital Signs Date Time Temp Pulse Resp B/P Pulse Ox O2 Delivery O2 Flow Rate FiO2 04/10/17 08:02 57 04/10/17 07:42 97.0 18 113/58 98 04/07/17 17:33 Room Air Intake and Output 04/09/17 04/09/17 04/10/17 15:00 23:00 07:00 Intake Total 1220 ml 200 ml Output Total 2075 ml 2300 ml Balance -855 ml -2100 ml Exam awake and alert slow to response oriented to self, not to date or hospital unable to provide information regarding her doctor in [place] follows simple commands CN: II-XII Motor: 5/5 UE and LE Tone wnl Reflexes 2+ throughout toes down Results/Medications Result Diagram: 04/09/17 0641 04/10/17 0355 Results 24 hrs Laboratory Tests Test 04/10/17 03:55 Sodium Level 146 H Potassium Level 3.8 Chloride Level 105 Carbon Dioxide Level 27 Anion Gap 18 H Blood Urea Nitrogen < 2 L Creatinine 0.61 Glucose Level 84 Calcium Level 9.2 Phenytoin (Dilantin) Level 21.1 *H Medications Current Medications Acetaminophen (Tylenol Tab) 650 mg Q6H PRN PO PAIN LEVEL 1-3 OR FEVER; Start at 01:30 Docusate Sodium (Colace) 100 mg Q12H PRN PO CONSTIPATION; Start 04/04/17 at 01: 30 Bisacodyl (Dulcolax) 5 mg DAILY PRN PO CONSTIPATION; Start 04/04/17 at 01:30 Pantoprazole (Protonix Iv) 40 mg DAILY@06 IV Last administered on 04/10/17 06: 21; Admin Dose 40 MG; Start 04/04/17 at 06:00 Lorazepam (Ativan) 2 mg PRN PRN IV SEIZURES Last administered on 04/06/17 05: 16; Admin Dose 2 MG; Start 04/06/17 at 04:32 Lamotrigine 250 mg 250 mg BID PO Last administered on 04/10/17 08:27; Admin Dose 250 MG; Start 04/06/17 at 14:00 Levetiracetam 100 ml @ 400 mls/hr Q12 IVPB Last administered on 04/10/17 08:28 ; Admin Dose 400 MLS/HR; Start 04/06/17 at 09:30 Dextrose (D5W) 1,000 ml @ 100 mls/hr Q10H IV Last administered on 04/10/17 10: 16; Admin Dose 100 MLS/HR; Start 04/10/17 at 10:00 Assessment/Plan Chief Complaint/Hosp Course 27 yo female with hx of seizures since age 16 admitted with breakthrough seizures severe encephalopathy. Dilantin toxic now. Dilantin level trending down, discontinued. -still very encephalopathic, continue to monitor -0.1 mg/kg ativan for further seizure max dose 4 mg ativan -continue Keppra, Lamictal at current doses -will hold dilantin until levels normal and start lower PO dosing -PT eval, continue monitoring until encephalopathy improves and dilantin level trends downwards Problems: KYLEE PULIDO MD Apr 10, 2017 10:57
--- NOTE | 2017-04-10 15:11 | PN ---
Date/Time of Note Date/Time of Note DATE: 04/10/17 TIME: 15:07 Assessment/Plan VTE Prophylaxis VTE Prophylaxis Intervention: SCD's Lines/Catheters [facility] Saline Lock Urinary Cath still in place: No Assessment/Plan Chief Complaint/Hosp Course 1. Seizure d/o: Stable -Patient having no further Keppra and Lamictal, Dilantin held secondary to elevated serum levels - cont seizure precautions 2. Acute Encephalopathy: Likely 2/2 post-ictal state-improved but persists -MRI brain shows no abnormalities -PT eval appreciated, patient requiring assist for ambulation, pillowcase cutter to arrange for rehab, OT evaluation 3. Leukocytosis: likely reactive(stress-induced)-resolved -UA neg for UTI 4. Hypernatremia -Continue D5 W Prophylaxis: SCDs Problems: Subjective 24 Hr Interval Summary Constitutional: disoriented Exam/Review of Systems Vital Signs Vitals Vital Signs Date Time Temp Pulse Resp B/P Pulse Ox O2 Delivery O2 Flow Rate FiO2 04/10/17 14:39 81 04/10/17 11:36 98.0 18 117/67 98 04/07/17 17:33 Room Air Intake and Output 04/09/17 04/09/17 04/10/17 14:59 22:59 06:59 Intake Total 1220 ml 200 ml Output Total 2075 ml 2300 ml Balance -855 ml -2100 ml Exam Psych: confusion Respiratory: clear to auscultation Cardiovascular: regular rate and rhythm Gastrointestinal: soft, No distended Musculoskeletal: nl extremities to inspection Results Result Diagram: 04/09/17 0641 04/10/17 0355 Results 24 hrs Laboratory Tests Test 04/10/17 03:55 Sodium Level 146 H Potassium Level 3.8 Chloride Level 105 Carbon Dioxide Level 27 Anion Gap 18 H Blood Urea Nitrogen < 2 L Creatinine 0.61 Glucose Level 84 Calcium Level 9.2 Phenytoin (Dilantin) Level 21.1 *H Medications Medications Current Medications Acetaminophen (Tylenol Tab) 650 mg Q6H PRN PO PAIN LEVEL 1-3 OR FEVER; Start at 01:30 Docusate Sodium (Colace) 100 mg Q12H PRN PO CONSTIPATION; Start 04/04/17 at 01: 30 Bisacodyl (Dulcolax) 5 mg DAILY PRN PO CONSTIPATION; Start 04/04/17 at 01:30 Pantoprazole (Protonix Iv) 40 mg DAILY@06 IV Last administered on 04/10/17 06: 21; Admin Dose 40 MG; Start 04/04/17 at 06:00 Lorazepam (Ativan) 2 mg PRN PRN IV SEIZURES Last administered on 04/06/17 05: 16; Admin Dose 2 MG; Start 04/06/17 at 04:32 Lamotrigine 250 mg 250 mg BID PO Last administered on 04/10/17 08:27; Admin Dose 250 MG; Start 04/06/17 at 14:00 Levetiracetam 100 ml @ 400 mls/hr Q12 IVPB Last administered on 04/10/17 08:28 ; Admin Dose 400 MLS/HR; Start 04/06/17 at 09:30 Dextrose (D5W) 1,000 ml @ 100 mls/hr Q10H IV Last administered on 04/10/17 10: 16; Admin Dose 100 MLS/HR; Start 04/10/17 at 10:[address] Apr 10, 2017 15:11
[2017-04-11 01:27] VITALS: BP 125/76; RESP 20
[2017-04-11] MEDS: PANTOPRAZOLE 40 MG INJ IV SCH (06:00)
[2017-04-11] MEDS: DEXTROSE 5% 1,000 ML IV SCH ×2 (06:00→08:42)
[2017-04-11 06:06] LABS: ANION GAP 19 (8-16); CALCIUM 9.5 mg/dl (8.4-10.2); CARBON DIOXIDE 28 mmol/L (21-31); CHLORIDE 103 mmol/L (97-110); GLUCOSE 92 mg/dl (70-220); POTASSIUM 3.6 mmol/L (3.5-5.1); SODIUM 146 mmol/L (135-144)
[2017-04-11 06:30] LABS: BLOOD UREA NITROGEN < 2 mg/dl (7-20)
[2017-04-11 07:40] VITALS: BP 100/60; RESP 18
[2017-04-11] MEDS: LEVETIRACETAM 1500 MG (PMX) 100 ML IVPB SCH (08:42)
[2017-04-11] MEDS: LAMOTRIGINE 100 MG TAB PO SCH (09:00)
--- NOTE | 2017-04-11 11:54 | CONS ---
Date/Time of Note Date/Time of Note DATE: 04/11/17 TIME: 11:51 Consult Date/Type/Reason Admit Date/Time Apr 04, 2017 at 00:52 Initial Consult Date 04/07/17 Type of Consultation: neurology Reason for Consultation eval for seizures Ordering Provider: [address] Subjective mental status is much improved Dilantin level now normalized, Dilantin has been discontinued i suspect she was likely toxic for a few days Objective Vital Signs Date Time Temp Pulse Resp B/P Pulse Ox O2 Delivery O2 Flow Rate FiO2 04/11/17 07:40 97.5 64 18 100/60 97 04/07/17 17:33 Room Air Intake and Output 04/10/17 04/10/17 04/11/17 15:00 23:00 07:00 Intake Total 850 ml 1600 ml Balance 850 ml 1600 ml Exam awake and alert smiling and more oriented eating breakfast, oriented to hospital name self month follows simple commands CN: II-XII Motor: 5/5 UE and LE Tone wnl Reflexes 2+ throughout toes down Results/Medications Result Diagram: 04/09/17 0641 04/11/17 0517 Results 24 hrs Laboratory Tests Test 04/11/17 05:17 White Blood Count Pending Red Blood Count Pending Hemoglobin Pending Hematocrit Pending Mean Corpuscular Volume Pending Mean Corpuscular Hemoglobin Pending Mean Corpuscular Hemoglobin Concent Pending Red Cell Distribution Width Pending Platelet Count Pending Mean Platelet Volume Pending Sodium Level 146 H Potassium Level 3.6 Chloride Level 103 Carbon Dioxide Level 28 Anion Gap 19 H Blood Urea Nitrogen < 2 L Creatinine 0.60 Glucose Level 92 Calcium Level 9.5 Phenytoin (Dilantin) Level 16.8 Medications Current Medications Acetaminophen (Tylenol Tab) 650 mg Q6H PRN PO PAIN LEVEL 1-3 OR FEVER; Start at 01:30 Docusate Sodium (Colace) 100 mg Q12H PRN PO CONSTIPATION; Start 04/04/17 at 01: 30 Bisacodyl (Dulcolax) 5 mg DAILY PRN PO CONSTIPATION; Start 04/04/17 at 01:30 Pantoprazole (Protonix Iv) 40 mg DAILY@06 IV Last administered on 04/11/17t 06: 00; Admin Dose 40 MG; Start 04/04/17 at 06:00 Lorazepam (Ativan) 2 mg PRN PRN IV SEIZURES Last administered on 04/06/17 05: 16; Admin Dose 2 MG; Start 04/06/17 at 04:32 Lamotrigine 250 mg 250 mg BID PO Last administered on 04/11/17 09:00; Admin Dose 250 MG; Start 04/06/17 at 14:00 Levetiracetam 100 ml @ 400 mls/hr Q12 IVPB Last administered on 04/11/17 08:42 ; Admin Dose 400 MLS/HR; Start 04/06/17 at 09:30 Dextrose (D5W) 1,000 ml @ 100 mls/hr Q10H IV Last administered on 04/11/17 08: 42; Admin Dose 100 MLS/HR; Start 04/10/17 at 10:00 Phenytoin (Dilantin) 100 mg TID PO ; Start 04/11/17 at 13:00 Assessment/Plan Chief Complaint/Hosp Course 27 yo female with hx of seizures since age 16 admitted with breakthrough seizures severe encephalopathy. Dilantin toxicity improved. Dilantin level trending down, discontinued for now. -encephalopathy improved would recommend dc Dilantin for now if necessary will re-initiate -0.1 mg/kg ativan for further seizure max dose 4 mg ativan -continue Keppra, Lamictal at current doses -PT eval, encephalopathy much improved may initiate dc planning she will require close outpatient follow up driving prohibited 6 mo per [place] [employer] regulations Problems: KYLEE PULIDO MD Apr 11, 2017 11:54
[2017-04-11 12:51] LABS: BASOPHIL # 0.1 10^3/ul (0.0-0.1); BASOPHILS % 0.7 % (0.0-2.0); EOSINOPHILS # 0.3 10^3/ul (0.0-0.5); EOSINOPHILS % 4.3 % (0.0-7.0); HEMATOCRIT 38.7 % (37.0-47.0); HEMOGLOBIN 13.1 g/dl (12.0-16.0); LYMPHOCYTES # 1.8 10^3/ul (0.8-2.9); LYMPHOCYTES % 24.8 % (15.0-51.0); MEAN CORPUSCULAR HGB CONC 33.9 g/dl (32.0-37.0); MEAN CORPUSCULAR VOLUME 91.5 fl (82.0-101.0); MEAN PLATELET VOLUME 10.3 fl (7.4-10.4); MONOCYTE # 0.6 10^3/ul (0.3-0.9); NEUTROPHIL # 4.6 10^3/ul (1.6-7.5); NEUTROPHILS % 61.8 % (39.0-77.0); PLATELET COUNT 345 10^3/UL (140-415); RED BLOOD COUNT 4.23 10^6/ul (4.20-5.40); RED CELL DISTRIBUTION WIDTH 12.4 % (11.5-14.5); WHITE BLOOD COUNT 7.4 10^3/ul (4.8-10.8)
[2017-04-11] MEDS ORDERED: PHENYTOIN 100 MG CAP PO SCH (13:00)
[2017-04-11] MEDS ORDERED: LEVE100018 PO (14:08)
--- NOTE | 2017-04-11 14:09 | PDOCDIS ---
Discharge Instructions CONDITION Patient Condition: Good HOME CARE INSTRUCTIONS: Diet Instructions: Regular ACTIVITY: Activity Restrictions: No Restrictions FOLLOW UP/APPOINTMENTS Follow-up Plan F/U WITH YOUR PCP IN 1-2 WEEKS AND WITH A NEUROLOGIST [address] Apr 11, 2017 14:09
[2017-04-11 16:24] VITALS: BP 108/63; RESP 18
--- NOTE | 2017-04-11 18:16 | DS ---
Date/Time of Note Date/Time of Note DATE: 04/11/17 TIME: 18:08 Discharge Summary Admission/Discharge Info Admit Date/Time Apr 04, 2017 at 00:52 Discharge Date/Time April 11, 2017 Discharge Diagnosis 1. Seizure d/o: Stable -Patient having no further seizures DC with Keppra and continue home Lamictal -Dilantin held secondary to elevated serum levels but has normalized today 2. Acute Encephalopathy 2/2 post-ictal state and possible Dilantin toxicity- resolved, patient back to baseline according to friend at bedside -MRI brain shows no abnormalities 3. Leukocytosis: likely reactive(stress-induced)-resolved -UA neg for UTI 4. Hypernatremia -Status post D5 W Patient Condition: Good Hospital Course Patient is a 27-year-old Chinese woman with a history of chronic seizure disorder medication noncompliance presents from home after having her third seizure. Patient had several seizures the night of admission. Patient was seen by neurology was put on Lamictal which she takes at home as well as Keppra and Dilantin. Patient's seizures were controlled the patient was seizure-free for several days. Patient continued to display confusion encephalopathy and MRI was ordered which was negative. Patient's Dilantin level was elevated was held, her encephalopathy improved when her Dilantin level normalized. Hence her encephalopathy was felt to be secondary to postictal state with Dilantin toxicity. Patient was felt to be stable for discharge and on day of discharge patient's mentation was back to baseline, this was verified by a friend who was bedside. Patient manager social back in [facility] was spoken to in the plan is for patient reportedly returned back to [facility]. Patient was told about the importance of med compliance and patient manager social was also told of discharge plan which will include Keppra in addition to her home Lamictal. Of note the patient's sodium levels were mildly elevated and was given D5W. On the day of discharge patient's vitals, labs and physical exam stable, she no acute complaints and questions are answered Home Meds Active Scripts Levetiracetam* (Keppra*) 1,000 Mg Tablet, 1500 MG PO BID, #90 TAB 3 Refills Prov:[address] 04/11/17 Primary Care Provider Care Physician No Primary Time spent on discharge: > [address] Apr 11, 2017 18:16
== END 2017-04-11 19:00 | disposition home or self-care (01) | DRG 100 ==
LOC: E/R 23:15 → MS4 04-04 00:52 → ICU 04-06 04:45 → MS4 04-07 16:45 → MS2 04-10 20:49
PROVIDERS: ADMIT Family Medicine; ATTEND Family Medicine
DX: G40.901 Epilepsy, unspecified, not intractable, with status epilepticus (principal); G93.40 Encephalopathy, unspecified; E86.0 Dehydration; D72.820 Lymphocytosis (symptomatic); Z91.19 Patient's noncompliance with other medical treatment and regimen
CPT/HCPCS: 36415; 70450; 70551; 71010; 80048; 80053; 80164; 80185; 80306; 80307; 81001; 83036; 83690; 83735; 84100; 84443; 84484; 84702; 85025; 86592; 86703; 87040; 87081; 87086; 92526; 92610; 93005; 95819; 96374; 96375; 96376; 97110; 97116; 97164; 97530; C9113; J1165; J1953; J2060; J2405; J3475; J7030; J7070